=== PATIENT | male | born 1960 | race Caucasian/White ===

== ENCOUNTER → 2020-03-26 | Outpatient (CLI) | payer MEDICARE ==
[2020-03-26 14:46] LABS: Basophils # (A) 0.1 k/uL (0-0.2); Basophils % (A) 1 %; Eosinophils # (A) 0.3 k/uL (0-0.7); Eosinophils % (A) 4 %; HCT 43.7 % (39.0-53.0); HGB 13.3 gm/dL (13.0-17.5); Lymphocytes % (A) 16 %; MCH 28.1 pg (25.0-35.0); MCHC 30.5 g/dL (31.0-37.0); MCV 92.2 fL (80.0-100.0); Mean Platelet Volume 7.2; Monocytes # (A) 0.6 k/uL (0-1.0); Monocytes % (A) 9 %; Neutrophils # (A) 4.4 k/uL (1.3-7.7); Neutrophils % (A) 68 %; Platelet Count 230 k/uL (150-450); RBC 4.74 m/uL (4.30-5.90); WBC 6.6 k/uL (3.8-10.6)
[2020-03-26 19:30] LABS: ALT 36 U/L (10-49); AST 33 U/L (14-35); African American GFR (CKD) 111.7 (60.0-200.0); Alkaline Phosphatase 77 U/L (41-126); Calcium 9.4 mg/dL (8.7-10.3); Carbon Dioxide 28.4 mmol/L (21.6-31.8); Chloride 104 mmol/L (96-109); Chol/HDL Ratio 3.34; Cholesterol 197 mg/dL (0-200); Globulin 2.5 g/dL (1.6-3.3); Glucose 88 mg/dL (70-110); Non-African American GFR(CKD) 96.4 (60.0-200.0); Potassium 4.6 mmol/L (3.5-5.5); Prostate Specific Antigen 0.7 ng/mL (0.0-4.5); Rheumatoid Factor, Qnt <4 IU/mL (0-15); Sodium 141 mmol/L (135-145); Total Bilirubin 0.4 mg/dL (0.3-1.2)
[2020-03-26 20:07] LABS: Erythrocyte Sedimentation Rate 14 mm/Hr (0-20)
[2020-03-26 20:20] LABS: Hemoglobin A1C 5.6 % (4.0-6.0)
[2020-03-26 20:42] LABS: C-Peptide 1.19 ng/mL (0.81-3.85)
[2020-03-27 11:05] LABS: Serum Amphetamine Negative; Serum Barbiturates Negative; Serum Benzodiazepine Negative; Serum Cocaine Negative; Serum Methadone Negative; Serum Opiates Positive; Serum Phencyclidine Negative; Serum Propoxyphene Negative; Serum THC (Cannabis) Negative
== END | disposition home or self-care (01) ==
LOC: LABWHC1 12:55
PROVIDERS: ATTEND Family Medicine
DX: I10 Essential (primary) hypertension (principal); Z79.899 Other long term (current) drug therapy; R97.20 Elevated prostate specific antigen [PSA]
CPT/HCPCS: 36415; 80053; 80061; 80307; 83036; 84153; 84681; 85025; 85652; 86431

== ENCOUNTER 2020-07-17 21:33 | Inpatient (IN) | payer MEDICARE ==
[2020-07-17] MEDS ORDERED: SODIUM CHLORIDE 0.9% 500 ML 500 ML IV ONE (22:19)
[2020-07-17] MEDS ORDERED: HYDROmorphone 1 MG/ML 1 ML SYRINGE IVP STA (22:21)
[2020-07-17] MEDS ORDERED: ONDANSETRON 4 MG/2 ML VIAL IVP STA (22:21)
[2020-07-17] MEDS ORDERED: LORazepam 2 MG/ML INJ IV STA (22:21)
--- NOTE | 2020-07-17 22:54 | ED ---
Altered Mental Status HPI - General Chief Complaint: Altered Mental Status Stated Complaint: Altered Mental Status Time Seen by Provider: 07/17/20 21:49 Source: patient, EMS Mode of arrival: EMS Limitations: altered mental status - History of Present Illness Initial Comments: 59 year-old presents to the emergency department for evaluation. It is unclear why patient is coming into the emergency department. His thoughts are scattered and he seems overwhelmed with pain and positioning though he states this is chronic for him and not new. He is also reporting abdominal pain and distention which he states has been going on for a long time. He denies any fever or chills. States that today he noticed his apartment was very hot and that he had turned the heat up way too high. He states that he almost fell down, but was able to catch himself on the wall. Denies any head injury. States that he realized he needed to come to the hospital so he called a friend to call and ambulance. When EMS crew arrived the house was very messy and filthy. They state that patient seemed very altered and stated that the friend seemed to think so as well. He denies any vomiting. Denies headache, blurred or double vision. Again he is reporting back pain and leg pain, takes "100mg Morphine every day but it isn't working". - Related Data Home Medications Medication Instructions Recorded Confirmed Escitalopram [Lexapro] 10 mg PO DAILY 07/17/20 07/17/20 Fluticasone Nasal [place] [Flonase 2 spr EA NOSTRIL DAILY 07/17/20 07/17/20 Nasal [place]] Gabapentin 600 mg PO TID 07/17/20 07/17/20 Morphine Sulfate ER [Ms Contin] 60 mg PO BID 07/17/20 07/17/20 Pantoprazole Sodium [Protonix] 40 mg PO BID 07/17/20 07/17/20 Sulfamethox-Tmp 800-160Mg [Bactrim 1 tab PO BID 07/17/20 07/17/20 DS 800-160 mg] clonazePAM [KlonoPIN] 0.5 mg PO QID 07/17/20 07/17/20 lisinopriL 20 mg PO DAILY 07/17/20 07/17/20 Allergies Allergy/AdvReac Type Severity Reaction Status Date / Time No Known Allergies Allergy Verified 07/17/20 22:47 Review of Systems ROS Statement: Those systems with pertinent positive or pertinent negative responses have been documented in the HPI. ROS Other: All systems not noted in ROS Statement are negative. Past Medical History Past Medical History: Unable to Obtain, Hypertension History of Any Multi-Drug Resistant Organisms: None Reported Past Surgical History: Back Surgery, Orthopedic Surgery Additional Past Surgical History / Comment(s): neck surgery Past Psychological History: Anxiety Smoking Status: Former smoker Past Alcohol Use History: Abuse Past Drug Use History: None Reported General Exam Limitations: altered mental status General appearance: alert, anxious, in distress, other (Social well-developed, well-nourished, obese male patient in mild distress related to pain and discomfort. Vital signs upon presentation are temperature 98.3F, pulse 88, respirations 22, blood pressure 175/89, pulse ox 96% on room air.) Eye exam: Present: normal appearance, PERRL, EOMI. Absent: scleral icterus, conjunctival injection, periorbital swelling ENT exam: Present: normal exam, normal oropharynx, mucous membranes moist Respiratory exam: Present: normal lung sounds bilaterally. Absent: respiratory distress, wheezes, rales, rhonchi, stridor Cardiovascular Exam: Present: regular rate, normal rhythm, normal heart sounds. Absent: systolic murmur, diastolic murmur, rubs, gallop, clicks GI/Abdominal exam: Present: soft, distended, tenderness (Generalized abdominal tenderness), normal bowel sounds. Absent: guarding, rebound, rigid Neurological exam: Present: alert, oriented X3, CN II-XII intact Psychiatric exam: Present: normal affect, normal mood Skin exam: Present: warm, dry, intact, normal color. Absent: rash Course Vital Signs 07/17/20 07/17/20 21:57 23:00 Temperature 98.3 F Pulse Rate 88 76 Respiratory 22 18 Rate Blood Pressure 175/89 145/68 O2 Sat by Pulse 96 99 Oximetry Medical Decision Making - Medical Decision Making 59-year-old male patient presents to the emergency department today for altered mental status and abdominal pain. Physical examination did reveal distended tender abdomen. Lower legs were red flaky with no swelling. He is afebrile normal vital signs. Labs reviewed and did reveal decreased sodium at 133, potassium 6.1, BUN 28. Blood sugar was normal at 96. Urine showed no evidence for infection. He was positive for opiates and benzos. CT brain was negative. CT abdomen and pelvis did reveal a ventral hernia with no other abnormalities. Patient was treated for hyperkalemia with IV medication. He was given IV fluids. He'll be admitted to the hospital for further evaluation of altered mental status and hyperkalemia. He is agreeable with this plan. - Lab Data Result diagrams: 07/17/20 22:40 07/18/20 00:18 Lab Results 07/17/20 07/17/20 07/17/20 Range/Units 22:40 22:40 22:40 WBC 5.7 (3.8-10.6) k/uL RBC 5.02 (4.30-5.90) m/uL Hgb 15.0 (13.0-17.5) gm/dL Hct 44.0 (39.0-53.0) % MCV 87.7 (80.0-100.0) fL MCH 29.9 (25.0-35.0) pg MCHC 34.1 (31.0-37.0) g/dL RDW 12.5 (11.5-15.5) % Plt Count 259 (150-450) k/uL MPV 7.0 Neutrophils % 72 % Lymphocytes % 15 % Monocytes % 7 % Eosinophils % 2 % Basophils % 1 % Neutrophils # 4.1 (1.3-7.7) k/uL Lymphocytes # 0.9 L (1.0-4.8) k/uL Monocytes # 0.4 (0-1.0) k/uL Eosinophils # 0.1 (0-0.7) k/uL Basophils # 0.1 (0-0.2) k/uL PT 10.5 (9.0-12.0) sec INR 1.0 (<1.2) APTT 18.8 L (22.0-30.0) sec Sodium (137-145) mmol/L Potassium (3.5-5.1) mmol/L Chloride (98-107) mmol/L Carbon Dioxide (22-30) mmol/L Anion Gap mmol/L BUN (9-20) mg/dL Creatinine (0.66-1.25) mg/dL Est GFR (CKD-EPI)AfAm (>60 ml/min/1.73 sqM) Est GFR (CKD-EPI)NonAf (>60 ml/min/1.73 sqM) Glucose (74-99) mg/dL POC Glucose (mg/dL) (75-99) mg/dL POC Glu Soda Drier Feeder ID Calcium (8.4-10.2) mg/dL Magnesium (1.6-2.3) mg/dL Total Bilirubin (0.2-1.3) mg/dL AST (17-59) U/L ALT (4-49) U/L Alkaline Phosphatase (38-126) U/L Ammonia (<30) umol/L Troponin I (0.000-0.034) ng/mL Total Protein (6.3-8.2) g/dL Albumin (3.5-5.0) g/dL Lipase (23-300) U/L Urine Color Yellow Urine Appearance Clear (Clear) Urine pH 6.0 (5.0-8.0) Ur Specific [place] 1.021 (1.001-1.035) Urine Protein 1+ H (Negative) Urine Glucose (UA) Negative (Negative) Urine Ketones 2+ H (Negative) Urine Blood Small H (Negative) Urine Nitrite Negative (Negative) Urine Bilirubin Negative (Negative) Urine Urobilinogen <2.0 (<2.0) mg/dL Ur Leukocyte Esterase Negative (Negative) Urine RBC 1 (0-5) /hpf Urine WBC 2 (0-5) /hpf Ur Squamous Epith Cells <1 (0-4) /hpf Urine Mucus Rare H (None) /hpf Salicylates mg/dL Urine Opiates Screen Detected H (NotDetected) Ur Oxycodone Screen Not Detected (NotDetected) Urine Methadone Screen Not Detected (NotDetected) Ur Propoxyphene Screen Not Detected (NotDetected) Acetaminophen ug/mL Ur Barbiturates Screen Not Detected (NotDetected) U Tricyclic Antidepress Not Detected (NotDetected) Ur Phencyclidine Scrn Not Detected (NotDetected) Ur Amphetamines Screen Not Detected (NotDetected) U Methamphetamines Scrn Not Detected (NotDetected) U Benzodiazepines Scrn Detected H (NotDetected) Urine Cocaine Screen Not Detected (NotDetected) U Marijuana (THC) Screen Not Detected (NotDetected) Serum Alcohol mg/dL 07/17/20 07/17/20 07/17/20 Range/Units 22:40 22:40 22:40 WBC (3.8-10.6) k/uL RBC (4.30-5.90) m/uL Hgb (13.0-17.5) gm/dL Hct (39.0-53.0) % MCV (80.0-100.0) fL MCH (25.0-35.0) pg MCHC (31.0-37.0) g/dL RDW (11.5-15.5) % Plt Count (150-450) k/uL MPV Neutrophils % % Lymphocytes % % Monocytes % % Eosinophils % % Basophils % % Neutrophils # (1.3-7.7) k/uL Lymphocytes # (1.0-4.8) k/uL Monocytes # (0-1.0) k/uL Eosinophils # (0-0.7) k/uL Basophils # (0-0.2) k/uL PT (9.0-12.0) sec INR (<1.2) APTT (22.0-30.0) sec Sodium 133 L (137-145) mmol/L Potassium 6.1 H* (3.5-5.1) mmol/L Chloride 98 (98-107) mmol/L Carbon Dioxide 27 (22-30) mmol/L Anion Gap 8 mmol/L BUN 28 H (9-20) mg/dL Creatinine 1.23 (0.66-1.25) mg/dL Est GFR (CKD-EPI)AfAm 73 (>60 ml/min/1.73 sqM) Est GFR (CKD-EPI)NonAf 63 (>60 ml/min/1.73 sqM) Glucose 96 (74-99) mg/dL POC Glucose (mg/dL) (75-99) mg/dL POC Glu Soda Drier Feeder ID Calcium 10.1 (8.4-10.2) mg/dL Magnesium (1.6-2.3) mg/dL Total Bilirubin 0.8 (0.2-1.3) mg/dL AST 114 H (17-59) U/L ALT 75 H (4-49) U/L Alkaline Phosphatase 85 (38-126) U/L Ammonia <9 (<30) umol/L Troponin I 0.012 (0.000-0.034) ng/mL Total Protein 8.0 (6.3-8.2) g/dL Albumin 4.6 (3.5-5.0) g/dL Lipase (23-300) U/L Urine Color Urine Appearance (Clear) Urine pH (5.0-8.0) Ur Specific [place] (1.001-1.035) Urine Protein (Negative) Urine Glucose (UA) (Negative) Urine Ketones (Negative) Urine Blood (Negative) Urine Nitrite (Negative) Urine Bilirubin (Negative) Urine Urobilinogen (<2.0) mg/dL Ur Leukocyte Esterase (Negative) Urine RBC (0-5) /hpf Urine WBC (0-5) /hpf Ur Squamous Epith Cells (0-4) /hpf Urine Mucus (None) /hpf Salicylates mg/dL Urine Opiates Screen (NotDetected) Ur Oxycodone Screen (NotDetected) Urine Methadone Screen (NotDetected) Ur Propoxyphene Screen (NotDetected) Acetaminophen ug/mL Ur Barbiturates Screen (NotDetected) U Tricyclic Antidepress (NotDetected) Ur Phencyclidine Scrn (NotDetected) Ur Amphetamines Screen (NotDetected) U Methamphetamines Scrn (NotDetected) U Benzodiazepines Scrn (NotDetected) Urine Cocaine Screen (NotDetected) U Marijuana (THC) Screen (NotDetected) Serum Alcohol mg/dL 07/17/20 07/17/20 07/18/20 Range/Units 22:40 23:10 00:18 WBC (3.8-10.6) k/uL RBC (4.30-5.90) m/uL Hgb (13.0-17.5) gm/dL Hct (39.0-53.0) % MCV (80.0-100.0) fL MCH (25.0-35.0) pg MCHC (31.0-37.0) g/dL RDW (11.5-15.5) % Plt Count (150-450) k/uL MPV Neutrophils % % Lymphocytes % % Monocytes % % Eosinophils % % Basophils % % Neutrophils # (1.3-7.7) k/uL Lymphocytes # (1.0-4.8) k/uL Monocytes # (0-1.0) k/uL Eosinophils # (0-0.7) k/uL Basophils # (0-0.2) k/uL PT (9.0-12.0) sec INR (<1.2) APTT (22.0-30.0) sec Sodium (137-145) mmol/L Potassium 6.6 H* (3.5-5.1) mmol/L Chloride (98-107) mmol/L Carbon Dioxide (22-30) mmol/L Anion Gap mmol/L BUN (9-20) mg/dL Creatinine (0.66-1.25) mg/dL Est GFR (CKD-EPI)AfAm (>60 ml/min/1.73 sqM) Est GFR (CKD-EPI)NonAf (>60 ml/min/1.73 sqM) Glucose (74-99) mg/dL POC Glucose (mg/dL) 77 (75-99) mg/dL POC Glu Soda Drier Feeder ID [place] Calcium (8.4-10.2) mg/dL Magnesium 2.0 (1.6-2.3) mg/dL Total Bilirubin (0.2-1.3) mg/dL AST (17-59) U/L ALT (4-49) U/L Alkaline Phosphatase (38-126) U/L Ammonia (<30) umol/L Troponin I (0.000-0.034) ng/mL Total Protein (6.3-8.2) g/dL Albumin (3.5-5.0) g/dL Lipase 91 (23-300) U/L Urine Color Urine Appearance (Clear) Urine pH (5.0-8.0) Ur Specific [place] (1.001-1.035) Urine Protein (Negative) Urine Glucose (UA) (Negative) Urine Ketones (Negative) Urine Blood (Negative) Urine Nitrite (Negative) Urine Bilirubin (Negative) Urine Urobilinogen (<2.0) mg/dL Ur Leukocyte Esterase (Negative) Urine RBC (0-5) /hpf Urine WBC (0-5) /hpf Ur Squamous Epith Cells (0-4) /hpf Urine Mucus (None) /hpf Salicylates <1.0 mg/dL Urine Opiates Screen (NotDetected) Ur Oxycodone Screen (NotDetected) Urine Methadone Screen (NotDetected) Ur Propoxyphene Screen (NotDetected) Acetaminophen <10.0 ug/mL Ur Barbiturates Screen (NotDetected) U Tricyclic Antidepress (NotDetected) Ur Phencyclidine Scrn (NotDetected) Ur Amphetamines Screen (NotDetected) U Methamphetamines Scrn (NotDetected) U Benzodiazepines Scrn (NotDetected) Urine Cocaine Screen (NotDetected) U Marijuana (THC) Screen (NotDetected) Serum Alcohol <10 mg/dL - EKG Data -: EKG Interpreted by Me EKG Comments: EKG obtained at 2245 shows normal sinus rhythm with a ventricular rate of 64, ID interval 144, QRS duration 86, QT 408, QTC 420. No evidence of ST elevation or depression. - Radiology Data Radiology results: report reviewed, image reviewed CT brain without contrast was obtained. Report reviewed in its entirety. Impression by Dr. Valdovinos shows no acute hemorrhage, hydrocephalus, or mass effect. CT abdomen and pelvis is obtained. Report reviewed in its entirety. Impression by Dr. Valdovinos shows no acute findings. Hepatic steatosis. Colonic dive rticulosis. Large right neck ventral hernia with stretching of the anterior abdominal muscles. Disposition Clinical Impression: Altered mental status, Hyperkalemia Disposition: ADMITTED IP TO THIS [facility] Condition: Serious Decision to Admit Reason: Admit from EC Decision Date: 07/18/20 Decision Time: 01:47
[2020-07-17 23:04] LABS: Basophils # (A) 0.1 k/uL (0-0.2); Basophils % (A) 1 %; Eosinophils # (A) 0.1 k/uL (0-0.7); Eosinophils % (A) 2 %; Lymphocytes # (A) 0.9 k/uL (1.0-4.8); Lymphocytes % (A) 15 %; MCH 29.9 pg (25.0-35.0); MCHC 34.1 g/dL (31.0-37.0); MCV 87.7 fL (80.0-100.0); Monocytes # (A) 0.4 k/uL (0-1.0); Monocytes % (A) 7 %; Neutrophils # (A) 4.1 k/uL (1.3-7.7); Neutrophils % (A) 72 %; Platelet Count 259 k/uL (150-450); RBC 5.02 m/uL (4.30-5.90); RDW 12.5 % (11.5-15.5); WBC 5.7 k/uL (3.8-10.6)
[2020-07-17 23:11] LABS: Glucose,Whole Blood 77 mg/dL (75-99)
[2020-07-17 23:12] LABS: Albumin 4.6 g/dL (3.5-5.0); Appearance,Urine Clear (Clear); Bilirubin,Urine Negative (Negative); Blood,Urine Small (Negative); Calcium 10.1 mg/dL (8.4-10.2); Color,Urine Yellow; Glucose,Urine (UA) Negative (Negative); Ketones,Urine 2+ (Negative); Leukocyte Esterase,Urine Negative (Negative); Mucus,Urine Rare /hpf; Nitrite,Urine Negative (Negative); Protein,Urine 1+ (Negative); RBC,Urine 1 /hpf (0-5); Specific Gravity,Urine 1.021 (1.001-1.035); Squamous Epithelial Cell,Urine <1 /hpf (0-4); Total Bilirubin 0.8 mg/dL (0.2-1.3); Urobilinogen,Urine <2.0 mg/dL (<2.0); WBC,Urine 2 /hpf (0-5)
[2020-07-17 23:15] LABS: Potassium 6.1 mmol/L (3.5-5.1)
[2020-07-17 23:26] LABS: Prothrombin Time 10.5 sec (9.0-12.0)
[2020-07-17 23:28] LABS: Amphetamine Screen,Urine Not Detected (NotDetected); Barbiturate Screen,Urine Not Detected (NotDetected); Benzodiazepines Screen,Urine Detected (NotDetected); Cocaine Screen,Urine Not Detected (NotDetected); Methadone Screen, Urine Not Detected (NotDetected); Opiate Screen,Urine Detected (NotDetected); Oxycodone Screen, Urine Not Detected (NotDetected); Phencyclidine Screen,Urine Not Detected (NotDetected); Tricyclic Antidepressant,Urine Not Detected (NotDetected); Urn Cannabinoid Scrn Not Detected (NotDetected)
[2020-07-17 23:30] LABS: Partial Thromboplastin Time 18.8 sec (22.0-30.0)
[2020-07-18] MEDS ORDERED: HYDROmorphone 1 MG/ML 1 ML SYRINGE IVP STA (00:07)
--- NOTE | 2020-07-18 01:18 | CT ---
EXAM: CT Abdomen and Pelvis With Intravenous Contrast CLINICAL HISTORY: ITS.REASON CT Reason: Abd pain; distention TECHNIQUE: Axial computed tomography images of the abdomen and pelvis with intravenous contrast. CTDI is 40.47 mGy and DLP is 1859.7 mGy-cm. This CT exam was performed using one or more of the following dose reduction techniques: automated exposure control, adjustment of the mA and/or kV according to patient size, and/or use of iterative reconstruction technique. COMPARISON: No relevant prior studies available. FINDINGS: Lung bases: Bibasilar atelectasis. ABDOMEN: Liver: Mild steatosis.. Gallbladder and bile ducts: Unremarkable. Pancreas: Unremarkable. Spleen: Unremarkable. Adrenals: Unremarkable. Kidneys and ureters: No hydronephrosis. Stomach and bowel: No bowel obstruction. No bowel wall thickening. Mild colonic diverticulosis. PELVIS: Appendix: No evidence of appendicitis. Bladder: Unremarkable. Reproductive: Unremarkable. ABDOMEN and PELVIS: Intraperitoneal space: Unremarkable. Bones/joints: No acute fractures. Partially fused thoracolumbar spine and sacroiliac joints. Left femoral ORIF. Soft tissues: Large wide neck ventral hernia with stretching of the anterior abdominal muscles. No abdominal aortic aneurysm. Lymph nodes: No enlarged lymph nodes. IMPRESSION: 1. No acute findings. 2. Hepatic steatosis. 3. Colonic diverticulosis. 4. Large wide neck ventral hernia with stretching of the anterior abdominal muscles.
--- NOTE | 2020-07-18 01:18 | CT ---
EXAM: CT Head Without Intravenous Contrast CLINICAL HISTORY: ITS.REASON CT Reason: Altered mental status TECHNIQUE: Axial computed tomography images of the head/brain without intravenous contrast. CTDI is 49.27 mGy and DLP is 1070.4 mGy-cm. This CT exam was performed using one or more of the following dose reduction techniques: automated exposure control, adjustment of the mA and/or kV according to patient size, and/or use of iterative reconstruction technique. COMPARISON: No relevant prior studies available. FINDINGS: Brain: No hemorrhage or mass effect. Ventricles: No hydrocephalus. Bones/joints: Postsurgical changes at the occiput and upper cervical spine. Soft tissues: Unremarkable. Sinuses: Unremarkable. Mastoid air cells: Clear. IMPRESSION: No acute hemorrhage, hydrocephalus, or mass effect.
[2020-07-18] MEDS ORDERED: SODIUM CHLORIDE 0.9% 500 ML 500 ML IV ONE (01:22)
[2020-07-18] MEDS ORDERED: DEXTROSE 50% SYRINGE 50 ML IVP STA (01:22)
[2020-07-18] MEDS ORDERED: INSULIN REGULAR 100 UNIT/ML VIAL IV ONE (01:22)
[2020-07-18] MEDS ORDERED: CALCIUM GLUCONATE 1 GM in SODIUM CHLORIDE 0.9% 100 ML IVPB ONE (01:22)
[2020-07-18] MEDS ORDERED: FUROSEMIDE 10 MG/ML 4 ML VIAL IV STA (01:25)
[2020-07-18] MEDS ORDERED: NALOXONE 0.4 MG/ML 1 ML VIAL IV PRN (01:28)
[2020-07-18 01:40] LABS: Acetaminophen <10.0 ug/mL; Alcohol <10 mg/dL; Lipase 91 U/L (23-300); Salicylate <1.0 mg/dL
[2020-07-18] MEDS: HYDROmorphone 1 MG/ML 1 ML SYRINGE IVP PRN ×3 (03:32→15:07)
[2020-07-18] MEDS: LORazepam 2 MG/ML INJ IV PRN ×2 (03:34→09:53)
[2020-07-18] MEDS ORDERED: MORPHINE SULFATE ER 60 MG TABLET PO SCH (10:45)
[2020-07-18] MEDS ORDERED: lisinopriL 20 MG TAB PO SCH (10:45)
[2020-07-18 11:23] LABS: Calcium 9.8 mg/dL (8.4-10.2); Potassium 5.1 mmol/L (3.5-5.1)
[2020-07-18] MEDS: ESCITALOPRAM 10 MG TAB PO SCH (12:00)
[2020-07-18] MEDS: clonazePAM 0.5 MG TAB PO SCH ×3 (12:04→20:40)
[2020-07-18] MEDS: GABAPENTIN 300 MG CAP PO SCH ×2 (12:04→20:38)
[2020-07-18] MEDS: FLUTICASONE 50MCG/SPRAY NASAL 16GM EA NOSTRIL SCH (12:11)
[2020-07-18] MEDS: SODIUM CHLORIDE 0.9% 1,000 ML IV SCH (12:42)
[2020-07-18] MEDS: MORPHINE SULFATE ER 30 MG TABLET PO SCH ×2 (12:42→20:38)
--- NOTE | 2020-07-18 14:45 | P.CNNES ---
History of Present Illness Consult date: 07/18/20 Reason for Consult: altered mental status History of Present Illness: The patient is a 59-year-old male who [facility] on July 18, 2020 via teleneurology. The patient reportedly was brought into the emergency department via EMS. Patient states that he called a friend because he was not feeling well. The p grzegorz is a poor historian. He states that he is feeling "terrible". He also states "I'm a sick puppy". He reports having difficulty concentrating because of pain. He states that he was in his apartment and found that he had turned his thermostat up "way too high". He says that he was very hot and because of the extreme heat was feeling very poorly. He reports setting the temperature at "32C". He then argues with the nurse regarding the temperature conversion to Fahrenheit. The patient complains of severe pain. He says. He has had chronic pain for many years. He also notes that over the past several months, he has noticed severe abdominal pain. He repeatedly states that he feels as if someone puts something inside of his abdomen such as a "basketball" and they have blown it up, causing his abdomen to be very painful and to be distended. The patient reports having "thoracic, lumbar, neck and foot" pain. He says simply touching his feet causes severe pain. In reviewing the emergency department note, when EMS arrived at the patient's home they found it to be in marked disarray. EMS felt the patient was confused. The patient's friend also reportedly felt that the patient was not acting as his usual self. Past Medical History Past Medical History: Unable to Obtain, Hypertension Additional Past Medical History / Comment(s): chronic pain History of Any Multi-Drug Resistant Organisms: None Reported Past Surgical History: Back Surgery, Orthopedic Surgery Additional Past Surgical History / Comment(s): neck surgery Past Psychological History: Anxiety Smoking Status: Former smoker Past Alcohol Use History: Abuse Past Drug Use History: None Reported Medications and Allergies Home Medications Medication Instructions Recorded Confirmed Type Escitalopram [Lexapro] 10 mg PO DAILY 07/17/20 07/17/20 History Fluticasone Nasal [place] [Flonase 2 spr EA NOSTRIL DAILY 07/17/20 07/17/20 History Nasal [place]] Gabapentin 600 mg PO TID 07/17/20 07/17/20 History Morphine Sulfate ER [Ms Contin] 60 mg PO BID 07/17/20 07/17/20 History Pantoprazole Sodium [Protonix] 40 mg PO BID 07/17/20 07/17/20 History Sulfamethox-Tmp 800-160Mg [Bactrim 1 tab PO BID 07/17/20 07/17/20 History DS 800-160 mg] clonazePAM [KlonoPIN] 0.5 mg PO QID 07/17/20 07/17/20 History lisinopriL 20 mg PO DAILY 07/17/20 07/17/20 History Allergies Allergy/AdvReac Type Severity Reaction Status Date / Time No Known Allergies Allergy Verified 07/17/20 22:47 Physical Examination - Vital Signs Vital Signs: Vital Signs Temp Pulse Pulse Resp BP BP Pulse Ox 07/18/20 04:00 90 157/92 07/18/20 02:09 98.7 F 95 20 170/100 93 L 07/17/20 23:00 76 18 145/68 99 07/17/20 21:57 98.3 F 88 22 175/89 96 Intake and Output 07/17/20 07/18/20 07/18/20 22:59 06:59 14:59 Intake Total 340 0 Output Total 550 Balance -210 0 Intake: Intake, IV Titration 100 Amount Calcium Gluconate 1 gm In 100 Sodium Chloride 0.9% 100 ml @ 100 mls/hr IVPB ONCE ONE Rx#:[id number] Oral 240 0 Output: Urine 550 Other: Weight 102.058 kg 91 kg Gen.: The patient is reclining in the bed. He is in moderate distress, secondary to pain. HEENT: Head is atraumatic, normocephalic. Fundus not visualized. There is no scleral icterus. Mucous members are moist. Neck: Without bruits Heart: Regular rate and rhythm Lungs: Clear to auscultation Extremities: Without edema Neurological examination Mental status: The patient is awake, alert and oriented 3. His speech is clear. There is no dysarthria or dysphasia. The patient repeatedly states that he is in severe pain. He perseverates on pain. He repeatedly asks the nurse for pain medications. There is near constant talking about his pain. Cranial nerves: Pupils are equal at 3 mm and reactive. Visual ruano are full to confrontation. Extraocular movements are intact. There is no nystagmus. Facial sensation is intact. There is no facial asymmetry. Hearing is grossly intact. Uvula and palate are midline. Shoulder shrug is symmetric. Tongue protrudes midline. Motor: Strength is not formally assessed. The patient is observed moving his arms and legs around when repositioning in the bed. He is able to lift his legs to reposition himself. He is able to raise his arms over his head when trying to place a pillow behind his head. Coordination: [id number] and [id number] testing are intact Sensation: Grossly intact to light touch throughout. Deep tendon reflexes: 1+/4+ in the upper extremities. 1-2+4+ at the knees. Gait: Not assessed Results - Laboratory Findings CBC and BMP: 07/17/20 22:40 07/18/20 10:44 Abnormal Lab Findings: Abnormal Labs 07/17/20 07/17/20 07/17/20 22:40 22:40 22:40 Lymphocytes # 0.9 L APTT 18.8 L Sodium Potassium BUN AST ALT Urine Protein 1+ H Urine Ketones 2+ H Urine Blood Small H Urine Mucus Rare H Urine Opiates Screen Detected H U Benzodiazepines Scrn Detected H 07/17/20 07/18/20 22:40 00:18 Lymphocytes # APTT Sodium 133 L Potassium 6.1 H* 6.6 H* BUN 28 H AST 114 H ALT 75 H Urine Protein Urine Ketones Urine Blood Urine Mucus Urine Opiates Screen U Benzodiazepines Scrn Assessment and Plan Assessment: 1. The patient is cognitively intact. There is marked perseveration and near continuous speech regarding pain. The patient reports having difficulty answering questions because of his severe pain. Consider jeff versus secondary to morphine dependence/addiction 2. Hyperkalemia 3. Elevated liver enzymes Plan: 1. Consider evaluation by pain specialist 2. Consider psych evaluation 3. Your treatment of hyperkalemia and elevated liver enzymes Thank you for allowing me to participate in the care of this patient Time with Patient: Greater than 30 (spent 40 minutes via teleneurology)
--- NOTE | 2020-07-18 15:48 | HP ---
HISTORY AND PHYSICAL HISTORY OF PRESENT ILLNESS: The patient is complaining of abdominal pain and bloating, altered mental status. He says his thoughts are scattered. Feels overwhelmed with pain and positioning which are chronic for him. He has abdominal wall pain and distention that has been getting worse. No fever or chills. He had turned up the heat way too high at his home into 100. He could not breath, he could not catch himself. Nearly fell, passed out, came to the emergency room. EMS came. His place was messy and filthy. The patient felt very altered and stated that the friend seemed to think so as well. Denied any vomiting. Denies headache, blurred vision or double vision. He had negative CT scan of the brain. He is a chronic pain patient and has had multiple surgeries in the past. He wears a cervical collar all the time. MEDICATIONS: Home medicines: Lexapro 10 mg daily, fluticasone daily, gabapentin 600 t.i.d., MS Contin 60 b.i.d., Protonix 40 b.i.d., Bactrim Double Strength b.i.d., Klonopin 0.5 q.i.d., lisinopril 20 mg daily. ALLERGIES: Negative. REVIEW OF SYSTEMS: Fourteen-point review of systems as mentioned above. PAST MEDICAL HISTORY: Hypertension, some kind of lymphatic obstruction, multiple surgeries on his cervical and lumbar spine with multiple braces on his legs. He has severe skin infection in the lower legs and large scaling for which he is untreated. He changes socks once a month when he comes to my office. Psych history is some anxiety. SOCIAL HISTORY: Former smoker. History of alcohol abuse. PHYSICAL EXAMINATION: Vital signs are reviewed. He is alert. He appears anxious, giving appropriate answers. He is in mild distress. He wants his pillow set a certain way and pillow under his legs. His temperature is 98.3, pulse 88, respiratory 18-20, blood pressure was 170s over 80s. O2 is 96 on room air. Pupils equal, round, reactive to light and accommodation. ENT no mass. RESPIRATORY: Mild wheezes x4, otherwise clear. CARDIAC S1, S2. GI soft, normal bowel sounds. No guarding. No rebound. No rigidity. NEUROLOGIC: Alert and orient x3. PSYCH: Fair mood and affect. SKIN: Severe skin excoriation in the lower legs and severe thickening and deformed nails of the feet, severe redness from the knees down with super amounts of scaly skin and all over the place in his lower legs and severe thickened areas. CT abdomen and pelvis showed a ventral hernia. He had hyperkalemia treated with IV medicine, IV fluid which is new for him. We will get neurology consult. Renal consult for hyperkalemia, unclear etiology as a normal white count. UA shows 2+ ketones, suspect a severely dehydrated. LABORATORY DATA: Sodium on admission was 133, potassium 6.1, BUN 28, creatinine 1.23, calcium 10.1, AST is 114, ALT 75, albumin 4.6, magnesium 2.0. EKG sinus rhythm, no ischemia. CT of the brain is negative. CT abdomen pelvis, no acute findings. Fatty liver, large right ventral hernia. ASSESSMENT: 1. Altered mental status. 2. Hyperkalemia. 3. Dehydration. 4. Prerenal renal azotemia. 5. History of lumbar fusions and chronic pain syndrome. 6. Cellulitis. 7. of the legs. Wait for Infectious Disease, to take a look at his legs. Rehydrate him. Get Neurology to see him and renal for hyperkalemia. Please see further orders. GI will see him for possible irritable bowel syndrome of some kind. MMODL / IJN: [id number] /
[2020-07-18] MEDS: PANTOPRAZOLE 40 MG TABLET PO SCH (20:39)
--- NOTE | 2020-07-18 23:03 | CONS ---
CONSULTATION DATE OF SERVICE: 07/18/2020 REASON FOR CONSULTATION: Bilateral lower extremity cellulitis. HISTORY OF PRESENT ILLNESS: The patient is a 59-year-old male brought into the ER after a friend of his called EMS with the patient concerning for not feeling well. The patient has been complaining of a chronic pain syndrome and unable to take care of his legs in this patient who has significant crusting on the lower extremity. He mentioned he has not been able to wash them. The patient also complaining of abdominal distention. Denies having any nausea. No vomiting. No diarrhea or constipation. Denies having any chest pain. No shortness of breath or cough. On arrival of the EMS, the patient was noticed to have his ostomy messy, filthy and the patient was noticed to be slightly altered mental status. Though the patient denies having any headache or any other symptoms. The patient apparently does have chronic back pain and is taking about 100 mg of morphine every day, which apparently is not working for him. The patient on presentation to the hospital was afebrile. No fever has been recorded since then. The patient did have a normal white count. He was noticed to have a potassium of 6.1, creatinine was 1.23. Liver enzymes mildly elevated. Urine was negative. Urine drug screen was positive for benzo and opiates. The patient did have a CT of abdomen and pelvis did show large ventral hernia, but no other abnormality. The patient was noticed to have some erythema of the lower extremity with concern for possible cellulitis. He was started on cefazolin. Infectious Disease was consulted for further management of antibiotic therapy. Patient overall not a very good historian so most of the information has been extracted from the review of the chart. REVIEW OF SYSTEMS: Positive points have been mentioned in HPI. Complete review could not be obtained because of his mental status. PAST MEDICAL HISTORY: Chronic back pain, anxiety, and hypertension. PAST SURGICAL HISTORY: Neck surgery as well as back surgery. SOCIAL HISTORY: Remote history of smoking. Did have history of alcohol abuse. No drug use. FAMILY HISTORY: No pertinent findings noticed. ALLERGIES: No known drug allergies. MEDICATIONS: Include the patient is currently on cefazolin 1 g q.8 hours and Klonopin, Lexapro, Neurontin, Dilaudid, Zestril, Ativan, Ms Contin, Narcan, Protonix, and IV fluid. PHYSICAL EXAMINATION: Blood pressure 122/84 with a pulse of 87, temperature 98.6, he is 94% on room air. General description: The patient is a middle-aged male lying in bed in no distress. HEENT examination: No pallor or scleral icterus. Oral mucous membranes dry. No pharyngeal erythema or thrush. NECK: Trachea central. No thyromegaly. Lungs: Unlabored breathing with decreased breath sounds in the bases. No wheeze or crackles. Heart S1, S2. Regular rate and rhythm. No added sounds. ABDOMEN: Soft, no tenderness. No guarding or rigidity. Extremities with significant crusting, very minimal redness. No open wound or any drainage. Neurological: Patient is awake, alert, oriented times two. Mood and affect normal. LABS: Hemoglobin is 18, white count 5.7. BUN of 24, creatinine 1.16. Potassium 6.1. Liver enzymes mildly elevated. DIAGNOSTIC IMPRESSION AND PLAN: 1. Patient admitted to the hospital with mental status changes, possible metabolic currently being managed by Neurology in this patient who did have minimal erythema to the lower extremity, but no fever or elevated white count and did have significant poor hygiene to the lower extremity more of a factor than cellulitis. 2. Elevated liver enzymes. PLAN: 1. May continue cefazolin 1 g q.8 hours. 2. Check a hepatitis panel. 3. The patient may benefit from warm washcloths to the lower extremity to take all the crusting away followed by some moisturizing cream. 4. We will follow on clinical condition and further adjust medication if needed. Thank you for this consultation. Will follow this patient along with you. MMODL / IJN: [id number] /
[2020-07-19 07:33] LABS: ALT 57 U/L (4-49); AST 66 U/L (17-59); African American GFR (CKD) >90 (>60 ml/min/1.73 sqM); Albumin 4.2 g/dL (3.5-5.0); Alkaline Phosphatase 60 U/L (38-126); Anion Gap 7 mmol/L; Basophils # (A) 0.1 k/uL (0-0.2); Basophils % (A) 1 %; Blood Urea Nitrogen 23 mg/dL (9-20); Calcium 9.3 mg/dL (8.4-10.2); Carbon Dioxide 27 mmol/L (22-30); Chloride 100 mmol/L (98-107); Eosinophils # (A) 0.3 k/uL (0-0.7); Eosinophils % (A) 5 %; Glucose 88 mg/dL (74-99); HCT 46.5 % (39.0-53.0); HGB 15.2 gm/dL (13.0-17.5); Lymphocytes # (A) 1.5 k/uL (1.0-4.8); Lymphocytes % (A) 22 %; MCH 29.5 pg (25.0-35.0); MCHC 32.7 g/dL (31.0-37.0); MCV 90.1 fL (80.0-100.0); Monocytes # (A) 0.6 k/uL (0-1.0); Monocytes % (A) 9 %; Neutrophils # (A) 4.1 k/uL (1.3-7.7); Neutrophils % (A) 59 %; Non-African American GFR(CKD) 84 (>60 ml/min/1.73 sqM); Platelet Count 254 k/uL (150-450); Potassium 5.1 mmol/L (3.5-5.1); RBC 5.16 m/uL (4.30-5.90); RDW 12.6 % (11.5-15.5); Sodium 134 mmol/L (137-145); Total Bilirubin 0.7 mg/dL (0.2-1.3); Total Protein 7.5 g/dL (6.3-8.2); WBC 6.9 k/uL (3.8-10.6)
--- NOTE | 2020-07-19 08:51 | P.NPCON ---
History of Present Illness - Reason for Consult acute renal failure, hyperkalemia - History of Present Illness Reason for consultation: Hyperkalemia History of present illness: Patient is a 59-year-old male seen in renal consultation for hyperkalemia. Patient is not a reliable historian and doesn't answer the question asked. Patient was brought to the hospital by the EMS due to generally not feeling well. He does have chronic pain as well as crusting of his lower external 80s. He's being followed by infectious disease. He did undergo CAT scan of the abdomen and pelvis which revealed a large ventral hernia. No acute findings were noted. Blood pressure is stable. Patient's potassium level was 6.1 on admission and subsequently went up to 6.6. Yesterday and today it's been stable at 5.1. He is maintained on normal saline at 50 mL an hour. No history of diabetes. However he was on lisinopril as well as Bactrim outpatient. Both of those medications are currently held. His oral intake is fair. Blood pressure is stable. Denies chest pain or shortness of breath. I don't see any no nsteroidals and his home medication list. Vital signs are stable. General: The patient appeared well nourished and normally developed. HEENT: Head exam is unremarkable. Neck is without jugular venous distension. LUNGS: Breath sounds decreased. HEART: Rate and Rhythm are regular. ABDOMEN: Soft, nontender. EXTREMITITES: Chronic changes noted. No edema. No drainage. Past Medical History Past Medical History: Unable to Obtain, Hypertension Additional Past Medical History / Comment(s): chronic pain History of Any Multi-Drug Resistant Organisms: None Reported Past Surgical History: Back Surgery, Orthopedic Surgery Additional Past Surgical History / Comment(s): neck surgery Past Psychological History: Anxiety Smoking Status: Former smoker Past Alcohol Use History: Abuse Past Drug Use History: None Reported Medications and Allergies Home Medications Medication Instructions Recorded Confirmed Type Escitalopram [Lexapro] 10 mg PO DAILY 07/17/20 07/17/20 History Fluticasone Nasal [place] [Flonase 2 spr EA NOSTRIL DAILY 07/17/20 07/17/20 History Nasal [place]] Gabapentin 600 mg PO TID 07/17/20 07/17/20 History Morphine Sulfate ER [Ms Contin] 60 mg PO BID 07/17/20 07/17/20 History Pantoprazole Sodium [Protonix] 40 mg PO BID 07/17/20 07/17/20 History Sulfamethox-Tmp 800-160Mg [Bactrim 1 tab PO BID 07/17/20 07/17/20 History DS 800-160 mg] clonazePAM [KlonoPIN] 0.5 mg PO QID 07/17/20 07/17/20 History lisinopriL 20 mg PO DAILY 07/17/20 07/17/20 History Allergies Allergy/AdvReac Type Severity Reaction Status Date / Time No Known Allergies Allergy Verified 07/17/20 22:47 Physical Exam Vitals: Vital Signs Temp Pulse Resp BP Pulse Ox 07/19/20 04:00 98.7 F 85 16 123/83 93 L 07/19/20 01:56 84 16 07/19/20 00:00 98.6 F 84 16 138/82 92 L 07/18/20 20:00 98.4 F 107 H 16 137/83 92 L 07/18/20 16:00 98.6 F 87 17 128/84 94 L 07/18/20 14:00 87 17 07/18/20 12:00 98.6 F 90 17 134/80 96 Intake and Output 07/18/20 07/19/20 07/19/20 22:59 06:59 14:59 Intake Total 240 570 Output Total 550 325 Balance -310 245 Intake: Intake, IV Titration 450 Amount Sodium Chloride 0.9% 1, 450 000 ml @ 50 mls/hr IV . Q20H [facility] Rx#:[id number] Oral 240 120 Output: Urine 550 325 Other: Voiding Method Urinal Urinal # Bowel Movements 2 Weight 81.5 kg Results - Lab Results Most recent lab results Calcium 9.3 mg/dL (8.4-10.2) 07/19/20 06:24 Magnesium 2.0 mg/dL (1.6-2.3) 07/17/20 22:40 07/19/20 06:24 07/19/20 06:24 Assessment and Plan Plan: Assessment: 1. Hyperkalemia secondary to mild acute kidney injury, lisinopril and Bactrim. Resolved. 2. Mild acute kidney injury mostly prerenal improved with IV hydration. B actrim can also raise the creatinine by impairing its secretion. 3. Lower extremity cellulitis maintained on antibiotics. Infectious disease following. 4. Benign hypertension. Controlled. Plan: Maintain normal saline at 50 mL an hour. Continue to hold lisinopril. Avoid nephrotoxins. Thank you for the consultation. I will continue to follow the patient with you during his hospital stay.
[2020-07-19] MEDS ORDERED: FLUTICASONE 50MCG/SPRAY NASAL 16GM EA NOSTRIL SCH (09:00)
[2020-07-19] MEDS: ESCITALOPRAM 10 MG TAB PO SCH (09:42)
[2020-07-19] MEDS: MORPHINE SULFATE ER 30 MG TABLET PO SCH ×2 (09:42→20:28)
[2020-07-19] MEDS: GABAPENTIN 300 MG CAP PO SCH ×3 (09:42→23:22)
[2020-07-19] MEDS: clonazePAM 0.5 MG TAB PO SCH ×4 (09:42→23:21)
[2020-07-19] MEDS: PANTOPRAZOLE 40 MG TABLET PO SCH ×2 (09:44→20:28)
[2020-07-19 11:51] LABS: Hepatitis A Antibody IgM Non-Reactive (Non-Reactive); Hepatitis B Core IgM Non-Reactive (Non-Reactive); Hepatitis B Surface Antigen Non-Reactive (Non-Reactive); Hepatitis C IgG Antibody Non-Reactive (Non-Reactive)
[2020-07-19] MEDS: FLUTICASONE 50MCG/SPRAY NASAL 16GM EA NOSTRIL SCH (12:17)
--- NOTE | 2020-07-19 13:14 | P.PN ---
Subjective Progress Note Date: 07/19/20 Patient was seen at bedside and the he stated that he is doing well. Initially upon seen him he stated that the he can I cannot see him until he sees his primary care physician first. With persuasion was able to see the patient and then examine him. He denies of any focal weakness, numbness or difficulty getting his words out. Patient stated that she had multiple fracture in the past he had the cervical fusion from a fall and he cannot tell me how long ago is intact but he had that fusion of the C1 to C7. He told me that he had other factor in his back but could not tell me exactly where. He had a fracture of the the right forearm. He denies of any dizziness, focal weakness, diplopia, any history of seizure with these falls. He said that he was living with his father about a year ago until he currently he lives by himself for the last 1 year and he uses a walker. He denies off on up with the neurology as an outpatient. For the detail the patient neurological history please refer to Dr. Sanderson's note on 07/18/20. Objective - Vital Signs Vital signs: Vital Signs Temp 98.5 F 07/19/20 12:00 Pulse 66 07/19/20 12:00 Resp 18 07/19/20 12:00 BP 137/88 07/19/20 12:00 Pulse Ox 93 L 07/19/20 12:00 Intake & Output 07/18/20 07/19/20 07/19/20 18:59 06:59 18:59 Intake Total 240 570 540 Output Total 575 625 Balance -335 -55 540 Weight 81.5 kg Intake: Intake, IV Titration 450 300 Amount Sodium Chloride 0.9% 1, 450 250 000 ml @ 50 mls/hr IV . Q20H [facility] Rx#:[id number] ceFAZolin 1,000 mg In 50 Sodium Chloride 0.9% 50 ml @ 100 mls/hr IVPB Q8HR [facility] Rx#:[id number] Oral 240 120 240 Output: Urine 575 625 Other: Voiding Method Urinal Urinal Urinal # Bowel Movements 2 - Exam GENERAL: The patient is lying in bed and is not in acute distress. Patient has flat affect. NEUROLOGICAL: Higher mental function: The patient is awake, alert, oriented to self, place and time. Patient is following commands. No aphasia and no neglect. Cranial nerves: The pupils are round, equal and reactive to light and accommodation. Visual ruano are full to confrontation throughout. Extraocular movement is intact no nystagmus is noted. Facial sensation is normal to touch throughout. The facial strength is normal throughout. Hearing is normal bilaterally to hand rub. Tongue is midline and moved [id number] without any difficulty. No dysarthria is noted. Shoulder shrug is normal bilaterally. Motor: Gait is deferred. The strength is 5 over 5 throughout upper but in lower is able to lift above gravity. No sponatenous movement noted throughout.. Cerebellum: Normal finger to nose heel to chin bilaterally. Sensation: Sensation is normal to touch throughout. Reflexes (right/left): Left brachioradialis; left patellar 3+. Otherwise 2+ throughout. Could not assess ankles because of patient refusal because of pain in lower extremities. Plantars are downgoing bilaterally. - Labs CBC & Chem 7: 07/19/20 06:24 07/19/20 06:24 Labs: Abnormal Lab Results - Last 24 Hours (Table) 07/19/20 Range/Units 06:24 Sodium 134 L (137-145) mmol/L BUN 23 H (9-20) mg/dL AST 66 H (17-59) U/L ALT 57 H (4-49) U/L Microbiology - Last 24 Hours (Table) 07/18/20 08:49 Urine Culture - Final Urine,Voided Assessment and Plan Assessment: I agree the patient is cognitively intact but seems possibly jeff versus morphine dependence/addiction History of cervical fracture from a fall in the past with Cervical fusion from C1-C7 Also according to patient he had the history of other back fracture from falls Elevated liver function--trending down Hyperkalemia---resolved Mild acute kidney injury---improved Extremity cellulitis Benign Hypertension Plan: I ordered that TSH level. Physical therapy and occupation therapy are consulted. Psychiatry was consulted My opinion because of the patient's multiple falls and as a result of fractures. The patient is not safe to live independently. I think he'll benefit from assisted living facility or someone living with him or having supervised care. I recommended the patient to follow-up with a neurologist as an outpatient within 2-3 weeks. There is no further neurological workup needed. Will sign off. Please reconsult if needed. Lacho Field MD Neuro-hospitalist Time with Patient: Less than 30
[2020-07-19] MEDS ORDERED: ESCITALOPRAM 10 MG TAB PO STA (13:57)
--- NOTE | 2020-07-19 14:15 | P.CN ---
Psychiatric Consult - . Consult date: 07/19/20 Consult:: 07/19/20 14:00 IDENTIFYING DATA: This patient is a 59-year-old male who is currently single lives alone in apartment has no kids and is currently unemployed. REASON FOR REFERRAL: Psychiatry was consulted for psychiatric evaluation. HISTORY OF PRESENT ILLNESS: The patient presented to the hospital and complained of unclear symptoms when he came into the ER. According the ER report patient was apparently having "thoughts scattered" and was overwhelmed with his pain and spoke about abdominal pain and distention. Patient was brought in by EMS and according to ER report patient was having altered mental status when he was initially picked up from his apartment. ER report also claimed that patient's apartment was filthy and unclean. Patient had reported that he had turned up the thermostat to high in his apartment and was feeling dizzy. The patient's sodium was 133 potassium was 61 and BUN was 28 on admission however these have improved since being in the hospital. Urinalysis was negative UDS was positive for benzodiazepine and opiates. Patient had elevated AST/ALT levels however these have also been improving since being admitted. Patient had a computed tomography scan which was negative of his head. Patient was admitted to the medical floors for AMS and hyperkalemia. Nurse taking care of patient states that the team is wondering if patient has the capacity to take care of himself as it was reported the patient has been refusing to shower/B based and cleaned and also has been refusing to see gastroenterology and uncooperative with care. Patient was seen lying down in the bed and appeared to be fairly stiff and was complaining about pain and "multiple medical problems" however was fairly vague and defensive when the poem writer asked for patient to explain more about them. She repeated "look at my chart I shouldn't have to tell you that stuff". He was fairly uncooperative with poem writer and argumentative. He appeared to be demonstrating poor insight and judgment into his condition and his capability to care for himself. Patient appeared to be disheveled in appearance. He was fairly superficial with poem writer in answering most questions. He states that he's been feeling overwhelmed and admitted to having a history of depression and anxiety. Patient was fairly defensive about his living condition and minimized the condition of his apartment. At this time patient denies any suicidal or homical ideations, intent or plan. Patient denies any auditory, visual hallucinations. Patient was demonstrating some mild paranoia and suspiciousness toward poem writer. Patients admits to using no recreational drugs or alcohol. Patient was fairly defensive and argumentative about his medications and also being treated by a psychiatrist and claims that he only wants to be treated by Dr. Baird to perscribe his medications. Patient states that he was not able to clean his legs properly for several months. PAST PSYCHIATRIC HISTORY: Patient has a a history of depression and anxiety. Patient is currently on Lexapro 10 mg daily and Klonopin 0.5 mg 4 times a day. Patient denies any previous psychiatric hospitalizations. Patient denies any psychiatric outpatient follow-up. Patient denies any history of suicide attempts in the past. PAST MEDICAL HISTORY: Hypertension, chronic pain?. ALLERGIES: as per EMR. CHEMICAL DEPENDENCY HISTORY: as per HPI. 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 He states that he completed 6 years of college after high school. He states that he currently lives alone in apartment is single and has no kids. He states that he does not have any legal or history.. MENTAL STATUS EXAM: General Appearance: Patient appears to be overweight, stated age is alert, uncooperative and argumentative at times. Patient appears to have poor/disheveled hygiene and grooming wearing hospital gown with fair eye contact. Behavior: Patient is calmly lying in bed without any agitated behavior. Uncooperative and argumentative. Appears to be an pain and not moving in the bed. Speech: Patient's speech is fluent and nonpressured. Monotone and irritable at times. Mood/Affect: Patient reports their mood is "depressed", affect is incongruent Suicidality/Homicidality: Patient denies having any suicidal or homicidal idea tion intent or plan. Perceptions: Patient denies any visual hallucinations and denies any auditory hallucinations Though content/process: Patient is argumentative, illogical at times. Rambles. Tangential/circumstantial. Denies any delusions. Mild paranoia and suspiciousness toward poem writer. Memory and concentration: AOX3, grossly intact for the purposes of this session. Can spell "WORLD" backwards Judgment and insight: poor IMPRESSIONS: Depressive disorder unspecified Possible autism spectrum disorder PLAN: -At this time patient DOES NOT meet criteria for inpatient psychiatric admiss ion. -Patient DOES NOT have decision making capacity at this time and is unable to reason through and communicate/appreciate the risks, benefits and alternatives to treatment. Patient also has been demonstrating that he is not able to care for himself at home including cleaning, bathing and attending to his medical comorbidities. -Would recommend the following medication changes/additions: Started Risperdal 1 mg daily at bedtime for mood stabilization/irritability/insomnia. Increase Lexapro to 20 mg daily for mood/anxiety. Can continue with Klonopin 0.5 mg 4 times a day as prescribed. -cushion worker to provide patient with outpatient mental health/psychiatry resources for appropriate follow up upon discharge -Communicated plan to patient's nurse. -SW/CM to look into placement options as patient has demonstrated poor insight and judgment and evidently cannot care for himself at home and attend to his self hygiene/cleaning and attend to his medical comorbidities. -Will continue to follow along -Please contact with any questions.
[2020-07-19] MEDS: SODIUM CHLORIDE 0.9% 1,000 ML IV SCH (17:25)
--- NOTE | 2020-07-19 17:45 | PN ---
PROGRESS NOTE This patient is a 59-year-old white male who was admitted with hyperkalemia secondary to mild kidney injury. He was seen and put on Bactrim, resolved. Now acute kidney injury, prerenal, with IV hydration. Bactrim can also raise the creatinine by impairing its secretion. Lower extremity cellulitis, on antibiotics. Benign hypertension, controlled. Continue with normal saline. Hold lisinopril. Monitor blood pressures. Infectious Disease said continue with cefazolin for the chronic pain syndrome . Psych saw the patient, says the patient was diagnosed with possible autism spectrum disorder and depressive disorder. He does not have decision-making capacity at this time, in their opinion, and that he is unable to care for himself at home. They started him on Risperdal 1 mg at home, increased Lexapro to 20. Continue Klonopin. Outpatient Psychiatry. Wait for chronic pain syndrome physician, LAMONTE / JAZZ: [id number] /
--- NOTE | 2020-07-19 20:55 | PN ---
PROGRESS NOTE DATE OF SERVICE: 07/19/2020 REASON FOR FOLLOWUP: Lower extremity cellulitis. INTERVAL HISTORY: The patient is currently afebrile, has been breathing comfortably. Denies having any chest pain or shortness of breath. Occasional cough. Still complaining of abdominal distention. No worsening pain to the lower extremity. PHYSICAL EXAMINATION: Blood pressure 153/86, pulse of 65, temperature 98.4. He is 97% on room air. General description is a middle-aged male lying in bed in no distress. RESPIRATORY SYSTEM: Unlabored breathing. Clear to auscultation anteriorly. HEART: S1, S2. Regular rate and rhythm. ABDOMEN: Soft. Slightly distended. EXTREMITIES: Dry skin. Minimal redness. No drainage. LABS: Hemoglobin is 15.2, white count 6.9, BUN of 23, creatinine 0.98. DIAGNOSTIC IMPRESSION AND PLAN: Patient with bilateral lower extremity overall poor hygiene with concern for mild cellulitis. The patient is currently covered with cefazolin; to continue and monitor his clinical course closely. MMODL / IJN: [id number] /
[2020-07-19] MEDS ORDERED: risperiDONE 1 MG TAB PO SCH (21:00)
[2020-07-20] MEDS: SODIUM CHLORIDE 0.9% 1,000 ML IV SCH (06:18)
--- NOTE | 2020-07-20 07:12 | P.PAINCN ---
History of Present Illness - Reason for Consult Consult date: 07/20/20 - History of Present Illness 59 yo male who presented to ED with AMS, hyperkalemia, abdominal pain. He has a hx of neck surgery, appears to be an extensive posterior fusion. He has complaints of neck, thoracic, lumbar pain. He also complains of lower extremity pain. He is a poor historian and extremely tangential in conversation. His pain is rated as a 9/10 in severity, its sharp and throbbing in his spine. he describes his feet as burning. Also complaining of abdominal pain, A CT Scan showed a ventral hernia without any obstruction. He denies any constipation. He is on chronic opioid therapy taking MS Contin 30mg Q6H, Neurontin, and clonazepam. He states his pain is not adequately controlled on this regimen. He has been getting IV dilaudid since being in the hospital which is also not controlling his pain. Review of Systems Constitutional: Denies chills, Denies fever Ears, nose, mouth and throat: Denies headache, Denies sore throat Cardiovascular: Denies chest pain, Denies shortness of breath Respiratory: Denies cough Gastrointestinal: Reports abdominal pain, Denies diarrhea, Denies nausea, Denies vomiting Musculoskeletal: Reports myalgias, Reports neck pain, Reports neck stiffness Neurological: Reports numbness, Denies weakness Psychiatric: Reports anxiety, Reports depression, Reports paranoia Past Medical History Past Medical History: Unable to Obtain, Hypertension Additional Past Medical History / Comment(s): chronic pain History of Any Multi-Drug Resistant Organisms: None Reported Past Surgical History: Back Surgery, Orthopedic Surgery Additional Past Surgical History / Comment(s): neck surgery Past Psychological History: Anxiety Smoking Status: Former smoker Past Alcohol Use History: Abuse Past Drug Use History: None Reported Medications and Allergies Home Medications Medication Instructions Recorded Confirmed Type Escitalopram [Lexapro] 10 mg PO DAILY 07/17/20 07/17/20 History Fluticasone Nasal [place] [Flonase 2 spr EA NOSTRIL DAILY 07/17/20 07/17/20 History Nasal Overton] Gabapentin 600 mg PO TID 07/17/20 07/17/20 History Morphine Sulfate ER [Ms Contin] 60 mg PO BID 07/17/20 07/17/20 History Pantoprazole Sodium [Protonix] 40 mg PO BID 07/17/20 07/17/20 History Sulfamethox-Tmp 800-160Mg [Bactrim 1 tab PO BID 07/17/20 07/17/20 History DS 800-160 mg] clonazePAM [KlonoPIN] 0.5 mg PO QID 07/17/20 07/17/20 History lisinopriL 20 mg PO DAILY 07/17/20 07/17/20 History Allergies Allergy/AdvReac Type Severity Reaction Status Date / Time No Known Allergies Allergy Verified 07/17/20 22:47 Physical Exam Vitals: Vital Signs Temp Pulse Resp BP BP Pulse Ox 07/20/20 04:00 97.4 F L 66 17 128/83 95 07/20/20 02:00 90 15 07/19/20 23:37 98.2 F 94 15 134/63 96 07/19/20 20:00 98.3 F 83 16 121/74 95 07/19/20 16:00 98.4 F 65 16 153/86 97 07/19/20 12:00 98.5 F 66 18 137/88 93 L 07/19/20 09:40 97.8 F 76 18 128/90 96 Intake and Output 07/19/20 07/19/20 07/20/20 14:59 22:59 06:59 Intake Total 540 240 Output Total 500 Balance 540 240 -500 Intake: Intake, IV Titration 300 Amount Sodium Chloride 0.9% 1, 250 000 ml @ 50 mls/hr IV . Q20H [facility] Rx#:[id number] ceFAZolin 1,000 mg In 50 Sodium Chloride 0.9% 50 ml @ 100 mls/hr IVPB Q8HR [facility] Rx#:[id number] Oral 240 240 Output: Urine 500 Other: Voiding Method Urinal Urinal Urinal Weight 89 kg - Constitutional General appearance: disheveled, mild distress, no acute distress - EENT Eyes: fundus normal, poor dentition - Cardiovascular Rhythm: regular Abnormal Heart Sounds: no systolic murmur, no diastolic murmur, no rub, no S3 Gallop, no S4 Gallop, no click, no other - Gastrointestinal General gastrointestinal: no distended, soft, ventral hernia - Musculoskeletal muscle strength in upper and lower extremities is equal and symmetrical. tenderness along the cervical and lumbar spine appreciated. Musculoskeletal: strength equal bilaterally - Psychiatric Psychiatric: A&O x's 3 Results CBC & Chem 7: 07/19/20 06:24 07/19/20 06:24 Labs: Abnormal Lab Results - Last 24 Hours (Table) 07/19/20 Range/Units 06:24 Sodium 134 L (137-145) mmol/L BUN 23 H (9-20) mg/dL AST 66 H (17-59) U/L ALT 57 H (4-49) U/L Microbiology - Last 24 Hours (Table) 07/18/20 08:49 Urine Culture - Final Urine,Voided Assessment and Plan Assessment: 1. 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 Peripheral neuropathy vs CRPS NOS of the lower extremities. 3. Acute abdominal pain 4. Depression Plan: 1. I recommend continuing patients home regimen of medication. His pain does not appear to be out of proportion to his day to day pain. His symptoms are chronic in nature with the exception of abdominal pain. Consider surgical consult for ventral hernia. 2. MS Contin 30mg Q 6H, continue Neurontin, and minimize IV dilaudid to 1-2x day. 3. Patient could have a component of hyperalgesia considering chronic/long duration high dose opioid use. He could benefit from outpatient detox/rehab. PQRS Measure Charge Sheet PQRS Narrative: Do You Want the Pneumonia Vaccine Up to Date Vaccine AT THIS TIME? Blood Pressure [Left Arm] 128/83 Blood Pressure [Right Arm 134/63 Supine] Blood Pressure [Right Arm 157/92 Sitting] Blood Pressure 145/68 Pain Intensity [Back] 0 Pain Intensity [None] 0 Pain Intensity 4 Pain Scale Used Numeric (1 - 10) Scale Used Numeric (1 - 10) Home Medications: Ambulatory Orders Escitalopram [Lexapro] 10 mg PO DAILY 07/17/20 Fluticasone Nasal Overton [Flonase Nasal [place]] 2 spr EA NOSTRIL DAILY 07/17/20 Gabapentin 600 mg PO TID 07/17/20 Morphine Sulfate ER [Ms Contin] 60 mg PO BID 07/17/20 Pantoprazole Sodium [Protonix] 40 mg PO BID 07/17/20 Sulfamethox-Tmp 800-160Mg [Bactrim DS 800-160 mg] 1 tab PO BID 07/17/20 clonazePAM [KlonoPIN] 0.5 mg PO QID 07/17/20 lisinopriL 20 mg PO DAILY 07/17/20
[2020-07-20 08:12] LABS: African American GFR (CKD) >90 (>60 ml/min/1.73 sqM); Anion Gap 7 mmol/L; Blood Urea Nitrogen 20 mg/dL (9-20); Calcium 9.2 mg/dL (8.4-10.2); Carbon Dioxide 28 mmol/L (22-30); Chloride 100 mmol/L (98-107); Glucose 92 mg/dL (74-99); Magnesium 1.8 mg/dL (1.6-2.3); Non-African American GFR(CKD) 89 (>60 ml/min/1.73 sqM); Potassium 4.5 mmol/L (3.5-5.1); Sodium 135 mmol/L (137-145)
[2020-07-20] MEDS ORDERED: ESCITALOPRAM 20 MG TAB PO SCH (09:00)
--- NOTE | 2020-07-20 09:42 | P.PN ---
Subjective Patient is seen in follow-up for hyperkalemia and mild acute kidney injury. Renal function back to baseline. Potassium level normal. Patient is not a reliable historian. Hemodynamically stable. Vital signs are stable. General: The patient appeared well nourished and normally developed. HEENT: Head exam is unremarkable. Neck is without jugular venous distension. LUNGS: Breath sounds decreased. HEART: Rate and Rhythm are regular. ABDOMEN: Soft, nontender. EXTREMITITES: No edema. Objective - Vital Signs Vital signs: Vital Signs Temp 97.4 F L 07/20/20 04:00 Pulse 66 07/20/20 04:00 Resp 17 07/20/20 04:00 BP 128/83 07/20/20 04:00 Pulse Ox 95 07/20/20 04:00 Intake & Output 07/19/20 07/20/20 07/20/20 18:59 06:59 18:59 Intake Total 540 240 240 Output Total 500 Balance 540 -260 240 Weight 89 kg Intake: Intake, IV Titration 300 Amount Sodium Chloride 0.9% 1, 250 000 ml @ 50 mls/hr IV . Q20H [facility] Rx#:[id number] ceFAZolin 1,000 mg In 50 Sodium Chloride 0.9% 50 ml @ 100 mls/hr IVPB Q8HR [facility] Rx#:[id number] Oral 240 240 240 Output: Urine 500 Other: Voiding Method Urinal Urinal - Labs CBC & Chem 7: 07/19/20 06:24 07/20/20 06:46 Labs: Abnormal Lab Results - Last 24 Hours (Table) 07/20/20 Range/Units 06:46 Sodium 135 L (137-145) mmol/L Microbiology - Last 24 Hours (Table) 07/18/20 08:49 Urine Culture - Final Urine,Voided Assessment and Plan Plan: Assessment: 1. Hyperkalemia secondary to mild acute kidney injury, lisinopril and Bactrim. Resolved. 2. Mild acute kidney injury mostly prerenal improved with IV hydration. Bactrim can also raise the creatinine by impairing its secretion. 3. Lower extremity cellulitis maintained on antibiotics. Infectious disease following. 4. Benign hypertension. Controlled. Plan: No changes from nephrology standpoint. I will sign off. Please call with any questions or concerns.
[2020-07-20 09:54] LABS: Albumin 3.9 g/dL (3.5-5.0); Bilirubin, Delta 0.3 mg/dL (0.0-0.2); Bilirubin,Unconjugated 0.2 mg/dL (0.0-1.1); Total Bilirubin 0.5 mg/dL (0.2-1.3); Total Protein 7.2 g/dL (6.3-8.2)
[2020-07-20] MEDS: MORPHINE SULFATE ER 30 MG TABLET PO SCH ×2 (10:13→22:02)
[2020-07-20] MEDS: PANTOPRAZOLE 40 MG TABLET PO SCH ×2 (10:14→22:02)
[2020-07-20] MEDS: GABAPENTIN 300 MG CAP PO SCH ×3 (10:14→22:01)
[2020-07-20] MEDS: clonazePAM 0.5 MG TAB PO SCH ×4 (10:14→22:11)
[2020-07-20] MEDS: SENNOSIDES-DOCUSATE SODIUM 1 EACH TAB PO SCH ×2 (10:16→22:04)
[2020-07-20] MEDS: FLUTICASONE 50MCG/SPRAY NASAL 16GM EA NOSTRIL SCH (10:16)
--- NOTE | 2020-07-20 10:27 | CT ---
EXAMINATION TYPE: CT lumbar spine wo con DATE OF EXAM: 07/20/2020 COMPARISON: None HISTORY: Lumbar DDD/Brace placement CT DLP: 1625.6 mGycm CONTRAST: None TECHNIQUE: CT of the lumbar spine is performed on a spiral scan at 3 mm thick sections. Reconstructed images are performed in the coronal and sagittal planes. FINDINGS: T12-L1: No focal disc herniation or significant disc bulge is evident. No spinal canal stenosis is present. Facet hypertrophy on the left has posterior lateral thecal sac compression at this level. L1-L2: No focal disc herniation or significant disc bulge is evident. No spinal canal stenosis or n eural foraminal stenosis is present. Facet hypertrophy is present. L2-L3: Disc bulge is present with mild anterior thecal sac flattening. Facet hypertrophy is present. No spinal canal stenosis is present. There is moderate right foraminal stenosis L3-L4: Broad-based disc bulge has mild anterior thecal sac flattening. Facet hypertrophy and ligament um flavum laxity has posterior lateral thecal sac compression. Some canal narrowing through this vern on may be present. Neural foramen appear patent L4-L5: Broad-based disc bulge has mild anterior thecal sac flattening. Facet hypertrophy and ligament um flavum laxity has posterior lateral thecal sac compression. Mild spinal canal stenosis through thi s region is likely present. There appears to be severe left and moderate to severe right foraminal st enosis. L5-S1: Minimal disc bulge may be present. Facet hypertrophy is present. No spinal canal stenosis is p resent. Mild foraminal narrowing is present. Scoliosis is evident. There is loss of disc height L4-5. IMPRESSION: 1. Facet hypertrophy with ligamentum flavum laxity contributing to some spinal canal narrowing greate st at L4-5. Milder narrowing may be present L3-4. 2. Facet hypertrophy contributing to foraminal narrowing discussed above. This appears greatest at th e L4-5 level.
--- NOTE | 2020-07-20 12:30 | PN ---
PROGRESS NOTE DATE OF SERVICE: 07/20/2020 REASON FOR FOLLOWUP: Bilateral lower extremity cellulitis. INTERVAL HISTORY: The patient is currently afebrile, has been breathing comfortably. Denies having any chest pain or cough. No abdominal pain or pain to the lower extremities. PHYSICAL EXAMINATION: Blood pressure is 121/79 with pulse of 79, temperature 98.3. He is 93% on room air. General description is a middle-aged male lying in bed in no distress. RESPIRATORY SYSTEM: Unlabored breathing, clear to auscultation anteriorly. HEART: S1, S2. Regular rate and rhythm. ABDOMEN: Soft, no tenderness. EXTREMITIES: Over legs all the crusting has gone, minimal redness, no drainage. LABS: White count 6.9. Creatinine 0.93. Potassium normal. DIAGNOSTIC IMPRESSION AND PLAN: Patient with bilateral lower extremity minimal cellulitis clinically responding cefazolin, finish therapy with short course of oral Keflex. All questions and concerns were answered. MMODL / IJN: [id number] /
[2020-07-20] MEDS: SIMETHICONE 80 MG CHEWABLE PO SCH ×3 (12:37→22:09)
--- NOTE | 2020-07-20 14:16 | P.PN ---
Progress Note - Text Progress Note Date: 07/20/20 Interval History: Patient was seen today for psychiatric follow-up regarding his depression. Hermes kraft did not take Risperdal last night and asked for his Lexapro to be decreased down to 10 mg and only took 10 mg today. Patient was seen at the bedside and appeared to have an improvement in his affect and was more cooperative today with policy writer. He claims that he was sorry and apologized for his "rudeness yesterday". He states that he was defensive about his medications and explained why he did not take the Risperdal as he "saw commercials and bad things about it". He also claims that the Lexapro at higher doses makes him feel too anxious and feels that 10 mg is the right dose for him. He states that today his pain has improved and he feels better overall with regards to his mood and anxiety. He states that he was able to sleep better last night. He states that he is continuing to have pain however had a computed tomography scan and wants to continue to follow-up with his primary care physician. At this time patient denies any suicidal or homical ideations, intent or plan. Patient denies any auditory, visual hallucinations and denies any paranoia or delusions. Patient denies any side effects from the medications and has been compliant with meds. Mental Status Exam: General Appearance: Patient appears to be overweight, stated age is alert, more cooperative today and directable. Patient appears to have improving hygiene and grooming wearing hospital gown with fair eye contact. Behavior: Patient is calmly lying in bed without any agitated behavior. More cooperative today. Speech: Patient's speech is fluent and nonpressured. Monotone and concrete Mood/Affect: Patient reports their mood is "better", affect is congruent and appears to be brighter today. Suicidality/Homicidality: Patient denies having any suicidal or homicidal ideation intent or plan. Perceptions: Patient denies any visual hallucinations and denies any auditory hallucinations Though content/process: Patient continues to ramble at times and is tangential/circumstantial. No paranoia today or any delusions. Logical. Memory and concentration: AOX3, grossly intact for the purposes of this session Judgment and insight: Improving Assessment Depressive disorder unspecified likely autism spectrum disorder chronic pain disorder Plan: -At this time patient DOES NOT meet criteria for inpatient psychiatric admission. -Would recommend the following medication changes/additions: Will discontinue Risperdal as patient is not willing to take it and his mood lability and agitation have improved. Continue with Lexapro to 10 mg daily for mood/anxiety. Can continue with Klonopin 0.5 mg 4 times a day as prescribed. -mud worker to provide patient with outpatient mental health/psychiatry resources for appropriate follow up upon discharge. Patient will also be following up with his PCP upon discharge. -Communicated plan to patient's nurse. -At this time psychiatry will sign off. -Please contact with any questions.
--- NOTE | 2020-07-20 14:56 | PN ---
PROGRESS NOTE Doug Savage is supposed to be getting a back brace for which a lumbar CAT scan will be ordered and a consult with Neurosurgery. He has facet arthropathy, posterior lateral thecal sac compression, severe left and moderate to severe right foraminal stenosis. Consult Neurosurgery is intact. Await for their recommendations. He is alert and oriented x3. Dr. Jean sees him for significant cellulitis of the legs. He continues with IV cefazolin, possibly oral Keflex as an outpatient. Await for neurosurgery to clear him prior to going home. He is refusing to increase in the psych medications as Psychiatry ordered. He wants a new back brace prior to going home. He agrees to have [facility] on discharge. LUNGS: Clear. CARDIOVASCULAR: S1, S2. ABDOMEN: Distended. Increased bowel sounds. He wants a GI doctor to see him for his abdominal pain. We are still waiting for the consultation to be done. When this is done, possibly we can get him home. He was seen by pain management consultation. Postsurgical pain cervical spine. He has severe stenosis of the lumbar spine, peripheral neuropathy, abdominal pain, depression. Current home medication. His pain is not out of proportion to his day-to-day pain. Waiting for brace. Surgical consult for ventral hernia. Continue current medications. Please see further orders. MMODL / IJN: [id number] /
--- NOTE | 2020-07-20 17:22 | CONS ---
CONSULTATION DATE OF DICTATION: 07/20/2020 REASON FOR CONSULTATION: Epigastric pain and abdominal bloating. HISTORY OF PRESENT ILLNESS: The patient is a 59-year-old pleasant white male admitted to the hospital with abdominal pain, abdominal bloating, altered mental status, as well as chronic pain all over the body on and off for the last several months' duration. The patient is currently being seen by multiple specialists, including psychiatrist. The reason GI was consulted is because of epigastric pain and abdominal bloating for the last one year's duration. Patient states that the pain is mostly in the epigastric as well as sometimes in the periumbilical area associated with severe abdominal bloating and fullness and early satiety. He denies any nausea, vomiting. He reports no recent weight loss. He has been having chronic constipation because of morphine that he uses for chronic pain syndrome. He did have a CT of the abdomen and pelvis done that showed a large ventral hernia, but no other abnormality was noted. The patient denies any prior history of peptic ulcer disease or recent NSAID use. He denies any heartburn. He has no history of EGD or colonoscopy in the past. At the time of admission to the hospital he was noted to have mild elevation of serum transaminases with ALT and AST in the range of 55 and 45, respectively. Repeat labs from today are within normal limits. The patient denies any history of chronic liver disease. PAST MEDICAL HISTORY: Significant for hypertension, chronic pain syndrome, chronic back pain, gastroesophageal reflux disease, anxiety, depression. MEDICATIONS: Medications at home include Klonopin, Lexapro, Neurontin, morphine sulfate, . PAST SURGICAL HISTORY: Neck surgery as well as back surgery. SOCIAL HISTORY: Remote history of smoking. No history of alcohol use. FAMILY HISTORY: Unremarkable. ALLERGIES: NO KNOWN DRUG ALLERGIES. REVIEW OF SYSTEMS: CARDIOPULMONARY: He denies any chest pain or shortness of breath. GENITOURINARY: No dysuria or hematuria. MUSCULOSKELETAL: Chronic pain syndrome. NEUROLOGY: Unremarkable. PSYCHIATRIC: Has some problems with concentration, anxiety, depression. ENT/VISION: Unremarkable. CONSTITUTIONAL: No recent weight loss. No fever, chills, night sweats. GI: As mentioned above. PHYSICAL EXAMINATION: Blood pressure 143/96, pulse rate 53, temperature 97.9. HEENT examination unremarkable. Conjunctivae pink. Sclerae anicteric. Oral cavity no lesions. NECK: No JVD or lymph node enlargement. CHEST: Clear to auscultation. HEART: Regular rate and rhythm. ABDOMEN: Slightly distended. Bowel sounds are positive. There was tenderness in the epigastric area. Rest of the abdomen was benign. Ventral hernia noted. EXTREMITIES: No pedal edema. NEUROLOGIC: Alert and oriented x3. No focal deficits. LABS: WBC 5.7, hemoglobin 15, platelets normal. Basic metabolic panel is within normal limits. Potassium was 6.1, but today it is 4.5. ALT, AST, T-bilirubin, alkaline phosphatase are within normal limits. ALT was 75 and AST was 114 at the time of admission to the hospital, but today they are 49 and 44, respectively. Hepatitis serologies for A, B and C are negative. IMPRESSION: 1. The patient presented to the hospital with epigastric discomfort with abdominal bloating, early satiety, associated with some nausea but no emesis, on and off for the last one year's duration. Symptoms have been progressively getting worse. No prior history of upper GI pathology. No history of peptic ulcer disease or NSAID use. 2. Chronic constipation with intermittent lower abdominal pain related to pain medications. No prior history of colonoscopy in the past. 3. Chronic pain syndrome. 4. History of anxiety and depression. Psychiatry has been consulted. RECOMMENDATIONS: 1. Continue with Protonix 40 mg twice daily. 2. Small frequent meals. 3. Because of the ongoing GI symptoms, I recommended an EGD and colonoscopy. At this time, patient wants to think about it. I recommended at least having an upper endoscopy during this hospitalization, and colonoscopy can be done on an outpatient basis when his overall condition improves. In the meantime, we will follow with you closely. Thank you for this consultation. MMODL / IJN: [id number] /
[2020-07-20] MEDS: polyethylene glycoL 3350 17 GM POWD.PACK PO SCH (22:04)
[2020-07-21] MEDS: SODIUM CHLORIDE 0.9% 1,000 ML IV SCH ×2 (06:59→21:20)
--- NOTE | 2020-07-21 08:36 | P.CNOR ---
History of Present Illness - [facility] Consult date: 07/20/20 Requesting physician: Gautam Mujica Consult reason: other (Thoracolumbar brace management) History of present illness: Patient is a 59-year-old male who is seen and examined at the bedside after consultation was placed for brace management. He was originally brought to emergency department on 07/17/2020 for altered mental status. Patient is awake, alert, oriented the bedside and answering questions fairly well without difficulty. Patient is known have previously followed with Dr. Mynor Tao at [facility]. He states he is known to have multiple thoracic compression fracture deformities. He states he underwent a kyphoplasty at approximately T8 in 2017. He sustained another compression fracture deformity in 2019. He was previously prescribed a TLSO brace. He has become dependent upon this brace. He states when he was brought to the hospital by the EMS the brace was not brought with him. He does not feel safe enough to be out of bed without the brace intact. He relies on the brace at all times except while lying in bed. He states he has significant increased thoracic back pain without having his brace intact. He does take narcotic pain medication and outpatient setting for pain control as prescribed by his primary care provider, Dr. Gautam Carroll. He is able to perform active range of motion bilateral lower extremities in the bed. He does admits to some neuropathy in the bilateral lower extremities. Patient states multiple times at the bedside his chronic pain is severe. During his admission he has been seen by neurology, nephrology, psychiatry, pain management, and medicine. During his admission he is also being treated for hyperkalemia and elevated liver enzymes in addition to his altered mental status. Patient's other medical diagnoses include hypertension. Past Medical History Past Medical History: Unable to Obtain, Hypertension Additional Past Medical History / Comment(s): chronic pain History of Any Multi-Drug Resistant Organisms: None Reported Past Surgical History: Back Surgery, Orthopedic Surgery Additional Past Surgical History / Comment(s): neck surgery Past Psychological History: Anxiety Smoking Status: Former smoker Past Alcohol Use History: Abuse Past Drug Use History: None Reported Medications and Allergies Home Medications Medication Instructions Recorded Confirmed Type Escitalopram [Lexapro] 10 mg PO DAILY 07/17/20 07/17/20 History Fluticasone Nasal [place] [Flonase 2 spr EA NOSTRIL DAILY 07/17/20 07/17/20 History Nasal [place]] Gabapentin 600 mg PO TID 07/17/20 07/17/20 History Morphine Sulfate ER [Ms Contin] 60 mg PO BID 07/17/20 07/17/20 History Pantoprazole Sodium [Protonix] 40 mg PO BID 07/17/20 07/17/20 History Sulfamethox-Tmp 800-160Mg [Bactrim 1 tab PO BID 07/17/20 07/17/20 History DS 800-160 mg] clonazePAM [KlonoPIN] 0.5 mg PO QID 07/17/20 07/17/20 History lisinopriL 20 mg PO DAILY 07/17/20 07/17/20 History Naproxen Sodium [Aleve] 440 mg PO BID 07/21/20 07/21/20 History Allergies Allergy/AdvReac Type Severity Reaction Status Date / Time No Known Allergies Allergy Verified 07/17/20 22:47 Physical Examination Physical exam: Patient is awake, alert, and oriented 3 and seems to be answering questions appropriately Vital signs stable Examination of thoracic and lumbar spine reveals skin is intact with no abrasions, lacerations, or bruises; no erythema, purulence or signs of infection No significant pain with palpation over the thoracic and lumbar spines I do not visualize the previous kyphoplasty site Has difficulty rolling over in bed and is reluctant to do so without significant assistance Dorsiflexion, plantarflexion, and extensor hallucis longus positive sustained bilaterally Patient is able to lift legs off the bed independently and laterally Some skin changes the bilateral lower extremities Patient admits to change in sensation with palpation of bilateral lower extremities Straight leg test negative bilateral lower extremities No signs or symptoms of DVT; no calf pain No pain with internal and external rotation of the hips bilaterally Neurovascularly intact Results Pertinent studies: CT of the lumbar spine taken on 07/20/2020: L1-2 facet hypertrophy; L2-3 facet hypertrophy and disc bulge with moderate right neural foraminal stenosis; L3-4 broad based disc bulge, facet hypertrophy, ligamentum flavum laxity resulting in some spinal canal narrowing; L4-5 degenerative disc disease, broad-based disc bulge, facet hypertrophy, ligamentum flavum laxity resulting in mild spinal canal stenosis with severe left and moderate to severe right neural foraminal stenosis; L5-S1 minimal disc bulge and facet hypertrophy with mild neural foraminal narrowing; evidence of some marginal syndesmophytes T12-S1; mild degenerative scoliosis; no evidence of spondylolisthesis CT of the abdomen pelvis reviewed for orthopedic purposes taken on 07/18/2020: Mild wedging T11 compression fracture deformity of indeterminate age; marginal syndesmophytes T12-L1; no other vertebral body compression fracture deformities identified; no spondylolisthesis; L4-5 degenerative disc disease - Labs Labs: Abnormal Lab Results - Last 24 Hours (Table) 07/20/20 07/20/20 Range/Units 06:46 06:46 Sodium 135 L (137-145) mmol/L Delta Bilirubin 0.3 H (0.0-0.2) mg/dL Microbiology - Last 24 Hours (Table) 07/18/20 08:49 Urine Culture - Final Urine,Voided H & H 07/17/20 07/19/20 Range/Units 22:40 06:24 Hgb 15.0 15.2 (13.0-17.5) gm/dL Hct 44.0 46.5 (39.0-53.0) % Coagulation 07/17/20 Range/Units 22:40 INR 1.0 (<1.2) Result Diagrams: 07/19/20 06:24 07/20/20 06:46 Assessment and Plan Assessment: Assessment: Chronic thoracolumbar pain Reported history of T8 thoracic kyphoplasty T11 compression fracture deformity of indeterminate age Deconditioning Lumbar degenerative scoliosis Marginal syndesmophytes T12-L1 Lumbar facet hypertrophy L4-5 spinal canal stenosis and neural foraminal stenosis L4-5 degenerative disc disease TLSO dependence due to deconditioning due to prolonged use Hypertension Altered mental status Hyperkalemia Elevated liver enzymes (1) Thoracolumbar back pain Current Visit: Yes Status: Acute Code(s): M54.5 - LOW BACK PAIN; M54.6 - PAIN IN THORACIC SPINE SNOMED Code(s): 236421759 (2) Compression fracture of T11 vertebra Current Visit: Yes Status: Acute Code(s): S22.080A - WEDGE COMPRESSION FRACTURE OF T11-T12 VERTEBRA, INIT SNOMED Code(s): 101775752 (3) Scoliosis of lumbar region due to degenerative disease of spine in adult Current Visit: Yes Status: Acute Code(s): M41.86 - OTHER FORMS OF SCOLIOSIS, LUMBAR REGION SNOMED Code(s): 548489393 (4) Muscular deconditioning Current Visit: Yes Status: Acute Code(s): R29.898 - OTH SYMPTOMS AND SIGNS INVOLVING THE MUSCULOSKELETAL SYSTEM SNOMED Code(s): 78753750 (5) Lumbar degenerative disc disease Current Visit: Yes Status: Acute Code(s): M51.36 - OTHER INTERVERTEBRAL DISC DEGENERATION, LUMBAR REGION SNOMED Code(s): 60654133 (6) Hypertension Current Visit: Yes Status: Acute Code(s): I10 - ESSENTIAL (PRIMARY) HYPERTENSION SNOMED Code(s): 48240073 (7) Elevated liver enzymes Current Visit: Yes Status: Acute Code(s): R74.8 - ABNORMAL LEVELS OF OTHER SERUM ENZYMES SNOMED Code(s): 048583698 (8) Lumbar spinal stenosis Current Visit: Yes Status: Acute Code(s): M48.061 - SPINAL STENOSIS, LUMBAR REGION WITHOUT NEUROGENIC ALEXANDRA SNOMED Code(s): 00567317 (9) Lumbar facet arthropathy Current Visit: Yes Status: Acute Code(s): M47.816 - SPONDYLOSIS W/O MYELOPATHY OR RADICULOPATHY, LUMBAR REGION SNOMED Code(s): 107447854 (10) Altered mental status Current Visit: Yes Status: Acute Code(s): R41.82 - ALTERED MENTAL STATUS, UNSPECIFIED SNOMED Code(s): 676161151 (11) Hyperkalemia Current Visit: Yes Status: Acute Code(s): E87.5 - HYPERKALEMIA SNOMED Cod e(s): 52528977 Plan: Plan: 1. Patient has been discussed in detail with Dr. Eliceo Russo. Imaging has been reviewed by myself and Dr. Eliceo Russo. Patient does have evidence of a T11 compression fracture deformity of indeterminate age. He has a reported history of previous kyphoplasty at T8 deformity in 2017. He also has a history of previous thoracic compression fracture which she underwent treatment in 2019. He has followed Dr. Mynor Tao the outpatient setting. Patient has been significantly dependent on his TLSO brace. He states he is unable to ambulate or perform any regular activities of daily living without his brace intact. He states he did not recover well from his previous fractures. He wears the brace at all times except while lying in bed. He is brought to the emergency department via EMS without his brace. He states he is unable to ambulate or get out of bed without significant difficulty without significant assistance during his admission to the hospital without his brace intact. He is unsure of exactly when the brace is previous he prescribed. At this time we will plan to try to obtain a new Spinomed TLSO brace. A prescription has been written and provided to case management for a Spinomed TLSO brace. Once this brace is delivered and fitted appropriately, patient should wear this brace for comfort and support during ambulation increase activities only as needed. Patient does not appear to have a acute compression fracture deformity at T11 on physical exam. He appears to be reliant on this brace due to deconditioning. We did discuss the importance of trying to perform some activities without this brace intact. The patient is unable to be fitted for a new brace we did discuss he would still be cleared to increase mobility and ambulation without the brace intact. Following fitting of this brace, patient is clear for discharge from an orthopedic spine standpoint. We are not currently planning for any surgical intervention at his thoracic or lumbar spines. He is encouraged to follow up with Dr. Mynor Tao in the outpatient setting for further treatment and evaluation in regards to his thoracic and lumbar spine as he is followed with him previously and has also undergone surgical intervention with him in the outpatient setting. 2. Patient will continue be seen and examined by multiple other medical providers including medicine, neurology, nephrology, psychology, and pain management Time with Patient: Greater than 30 (Including obtaining history, physical examination, reviewing of imaging, and dictation.)
[2020-07-21] MEDS: GABAPENTIN 300 MG CAP PO SCH ×3 (08:44→22:22)
[2020-07-21] MEDS: MORPHINE SULFATE ER 30 MG TABLET PO SCH ×2 (08:45→21:18)
[2020-07-21] MEDS: clonazePAM 0.5 MG TAB PO SCH ×4 (08:45→22:22)
[2020-07-21] MEDS: ESCITALOPRAM 10 MG TAB PO SCH (08:45)
[2020-07-21] MEDS: PANTOPRAZOLE 40 MG TABLET PO SCH ×2 (08:45→21:19)
[2020-07-21] MEDS: SENNOSIDES-DOCUSATE SODIUM 1 EACH TAB PO SCH ×2 (08:46→21:20)
[2020-07-21] MEDS: FLUTICASONE 50MCG/SPRAY NASAL 16GM EA NOSTRIL SCH (08:46)
[2020-07-21] MEDS: SIMETHICONE 80 MG CHEWABLE PO SCH ×4 (10:09→22:22)
--- NOTE | 2020-07-21 10:13 | P.ARTDOP ---
Arterial Doppler LOWER EXTREMITY ARTERIAL DOPPLER: DATE OF SERVICE: 07/18/2019 Reason for study: Constant leg pain. Doppler waveforms: Multiphasic bilaterally throughout. Pulse volume recording: []. Pressure gradients: None. Ankle-brachial indices: Greater than 1 bilaterally. Toe brachial indices: [] on the right, [] on the left Impression: Normal study.
[2020-07-21 11:08] LABS: African American GFR (CKD) >90 (>60 ml/min/1.73 sqM); Anion Gap 10 mmol/L; Blood Urea Nitrogen 19 mg/dL (9-20); Calcium 9.3 mg/dL (8.4-10.2); Carbon Dioxide 24 mmol/L (22-30); Chloride 103 mmol/L (98-107); Glucose 108 mg/dL (74-99); Non-African American GFR(CKD) 88 (>60 ml/min/1.73 sqM); Potassium 4.7 mmol/L (3.5-5.1); Sodium 137 mmol/L (137-145)
--- NOTE | 2020-07-21 11:14 | P.GSCN ---
History of Present Illness Consult date: 07/21/20 History of present illness: CHIEF COMPLAINT: Abdominal pain with bloating and altered mental status changes HISTORY OF PRESENT ILLNESS: This is a 59-year-old male with a known past medical history of chronic constipation, hypertension and back pain. Patient has been c omplaining of upper abdominal pain with bloating. He also had been having some altered mental status changes. He's been seen by multiple consultants physicians. He is also being treated for bilateral lower extremity cellulitis. He was found to have a T11 compression fracture and evaluated by spinal orthopedics. They've ordered a TLSO back brace. Patient seen by GI service who recommended EGD and colonoscopy due to patient's epigastric abdominal pain with abdominal bloating and nausea. Patient was refused endoscopies. Patient has also been seen by psychiatry who is following in regards patient's depression and likely autism spectrum disorder. Patient had a computed tomography scan of the abdomen and pelvis that showed large wide neck ventral hernia with stretching of the anterior abdominal muscles, hepatic steatosis, colonic diverticulosis. No acute findings. Patient denies any fever or chills or sweats. PAST MEDICAL HISTORY: See list. PAST SURGICAL HISTORY: See list. MEDICATIONS: See list. ALLERGIES: See list. SOCIAL HISTORY: No illicit drug use. REVIEW OF SYSTEMS: CONSTITUTIONAL: Denies fever or chills. HEENT: Denies blurred vision, vision changes, or eye pain. Denies hemoptysis CARDIOVASCULAR: Denies chest pain or pressure. RESPIRATORY: No shortness of breath. GASTROINTESTINAL: See HPI for pertinent findings HEMATOLOGIC: Denies bleeding disorders. GENITOURINARY: Denies any blood in urine or increased urinary frequency. SKIN: Denies pruitis. Denies rash. PHYSICAL EXAM: VITAL SIGNS: Reviewed GENERAL: Well-developed in no acute distress. HEENT: No sclera icterus. Extraocular movements grossly intact. Moist buccal mucosa. Head is atraumatic, normocephalic. No nasal drainage. ABDOMEN: Soft. Nondistended. Nontender NEUROLOGIC: Alert and oriented. Cranial nerves II through XII grossly intact. LABORATORY DATA: WBC 6.9 LFTs have normalized IMAGING: computed tomography scan of the abdomen and pelvis that showed large wide neck ventral hernia with stretching of the anterior abdominal muscles, hepatic steatosis, colonic diverticulosis. No acute findings. ASSESSMENT: 1. Abdominal pain 2. Large wide neck ventral hernia with stretching of the anterior abdominal muscles noted on computed tomography scan PLAN: -No surgical intervention planned -Continue supportive care Thank you for this consultation Physician Video Control Operator note has been reviewed by physician. Signing provider agrees with the documented findings, assessment, and plan of care. Past Medical History Past Medical History: Unable to Obtain, Hypertension Additional Past Medical History / Comment(s): chronic pain History of Any Multi-Drug Resistant Organisms: None Reported Past Surgical History: Back Surgery, Orthopedic Surgery Additional Past Surgical History / Comment(s): neck surgery Past Psychological History: Anxiety Smoking Status: Former smoker Past Alcohol Use History: Abuse Past Drug Use History: None Reported Medications and Allergies Home Medications Medication Instructions Recorded Confirmed Type Escitalopram [Lexapro] 10 mg PO DAILY 07/17/20 07/17/20 History Fluticasone Nasal [place] [Flonase 2 spr EA NOSTRIL DAILY 07/17/20 07/17/20 History Nasal [place]] Gabapentin 600 mg PO TID 07/17/20 07/17/20 History Morphine Sulfate ER [Ms Contin] 60 mg PO BID 07/17/20 07/17/20 History Pantoprazole Sodium [Protonix] 40 mg PO BID 07/17/20 07/17/20 History Sulfamethox-Tmp 800-160Mg [Bactrim 1 tab PO BID 07/17/20 07/17/20 History DS 800-160 mg] clonazePAM [KlonoPIN] 0.5 mg PO QID 07/17/20 07/17/20 History lisinopriL 20 mg PO DAILY 07/17/20 07/17/20 History Naproxen Sodium [Aleve] 440 mg PO BID 07/21/20 07/21/20 History Allergies Allergy/AdvReac Type Severity Reaction Status Date / Time No Known Allergies Allergy Verified 07/17/20 22:47 Surgical - Exam Vital Signs Temp Pulse Resp BP Pulse Ox 98.3 F 88 22 175/89 96 07/17/20 21:57 07/17/20 21:57 07/17/20 21:57 07/17/20 21:57 07/17/20 21:57 Results - Labs 07/19/20 06:24 07/20/20 06:46
--- NOTE | 2020-07-21 12:04 | P.OP ---
Date of Procedure: 07/21/20 Preoperative Diagnosis: Acute cholecystitis Postoperative Diagnosis: Acute cholecystitis Procedure(s) Performed: Laparoscopic cholecystectomy Anesthesia: WILLIAM Surgeon: Zackery Wagner Pathology: other (Gallbladder) Condition: stable Disposition: PACU (The patient was placed on the operating table. The patient received a general endotracheal tube anesthesia. The patients abdomen was prepped and draped in the usual sterile fashion. Through an infraumbilical stab incision, the fascia of the anterior abdominal wall was grasped with a pair of) Description of Procedure: The patient was placed on the operating table. The patient received a general endotracheal tube anesthesia. The patients abdomen was prepped and draped in the usual sterile fashion. Through an infraumbilical stab incision, the fascia of the anterior abdominal wall was grasped with a pair of Kochers and then the Veress needle was placed in the peritoneal cavity. Position of the Veress needle was confirmed with positive drop test. The abdomen was then insufflated. After adequate insufflation, the 10 mm trocar was placed in the peritoneal cavity. Following this the laparoscope was placed in the peritoneal cavity. The patient was placed in the head-up, right side up position and then a 5 mm trocar was placed in the right lateral and right subcostal position under direct visualization. A 8 mm trocar was placed in the epigastric position. The gallbladder was grasped in the fundus and infundib ulum. Traction on the gallbladder was placed in the lateral and the cephalad positions. The triangle of Calot was visualized.. The cystic duct was bluntly dissected until the union of the cystic duct and common bile duct was seen. A critical view of safety was achieved. The cystic duct was then divided and sealed with the Harmonic scissors. A PDS Endoloop was then placed throughout the cystic duct stump. The cystic artery divided and sealed with the Harmonic scissors. The gallbladder was then removed from the liver bed using Harmonic scissors. The gallbladder was then extracted through the epigastric port site. Operative field was checked for any bleeding spots and Harmonic scissors was used to coagulate the liver bed. The abdomen was irrigated. The trocars were removed. The skin was closed using interrupted 3-0 Vicryl suture. Dermabond dressing were applied. The patient tolerated the procedure well.
--- NOTE | 2020-07-21 14:22 | P.PN ---
Subjective Progress Note Date: 07/21/20 Principal diagnosis: Is a 59-year-old pleasant white male patient who was admitted to the hospital with abdominal pain and bloating, as well as altered mental status. He has a history of chronic pain all over his body, especially in his back her last several months duration. Gastroenterology was consulted for epigastric pain and abdominal bloating for the last one years duration. He states he has minimal appetite due to feeling full. He denies any previous upper and lower endoscopies. Yesterday it was ended and offered to have an upper endoscopy and colonosocpy, however he was not agreeable to proceed with any procedures. Today when seen and evaluated he states his abdominal pain and distention has gotten worse, he states he talked to Dr. Mujica and he is now agreeing to having an upper endoscopy only. Tying any nausea or vomiting, black tarry stools or melen a. Objective - Vital Signs Vital signs: Vital Signs Temp 98.2 F 07/21/20 11:25 Pulse 82 07/21/20 11:25 Resp 18 07/21/20 11:25 BP 138/81 07/21/20 11:25 Pulse Ox 97 07/21/20 11:25 Intake & Output 07/20/20 07/21/20 07/21/20 18:59 06:59 18:59 Intake Total 720 240 Output Total 1900 Balance 720 -1900 240 Weight 82 kg Intake: Oral 720 240 Output: Urine 1900 Other: Voiding Method Urinal Urinal # Voids 250 # Bowel Movements 1 - Exam General appearance: The patient is alert, oriented, in no acute distress. HET: Head is normocephalic and atraumatic. Conjunctiva pink. Sclera and icteric. Neck: Supple without lymphadenopathy. Abdomen: Soft, gastric tenderness, distended with bowel sounds. No guarding or rigidity. Extremities: Normal skin color and turgor. No pedal edema Neurological: No focal deficits. Alert and oriented 3. - Labs CBC & Chem 7: 07/19/20 06:24 07/21/20 10:30 Labs: Abnormal Lab Results - Last 24 Hours (Table) 07/21/20 Range/Units 10:30 Glucose 108 H (74-99) mg/dL Assessment and Plan (1) Epigastric abdominal pain Narrative/Plan: This is a patient who presented to the hospital with epigastric discomfort with abdominal bloating, early satiety, associated with some nausea but no emesis on and off for the last one years duration. Symptoms are progressively getting worse, he has had no prior history of upper GI pathology. Denies any history of peptic ulcer disease or NSAID use. Current Visit: Yes Status: Acute Code(s): R10.13 - EPIGASTRIC PAIN SNOMED Code(s): 94503956 (2) Abdominal bloating Current Visit: Yes Status: Acute Code(s): R14.0 - ABDOMINAL DISTENSION (GASEOUS) SNOMED Code(s): 415842451 (3) Constipation Narrative/Plan: Patient suffers from chronic constipation with intermittent lower abdominal pain related to pain medications. No prior history of colonoscopy in the past. Patient is refusing proceeding with a colonoscopy. Current Visit: Yes Status: Acute Code(s): K59.00 - CONSTIPATION, UNSPECIFIED SNOMED Code(s): 94096008 (4) Chronic pain Current Visit: Yes Status: Acute Code(s): G89.29 - OTHER CHRONIC PAIN SNOMED Code(s): 32653123 (5) Anxiety and depression Narrative/Plan: psychiatry has been consulted Current Visit: Yes Status: Acute Code(s): F41.9 - ANXIETY DISORDER, UNSPECIFIED; F32.9 - MAJOR DEPRESSIVE DISORDER, SINGLE EPISODE, UNSPECIFIED SNOMED Code(s): 098035755 Plan: 1. Supportive care 2. Continue with Protonix 40 mg twice daily 3. Recommend small frequent meals 4. Nothing by mouth after midnight 5. Will proceed with EGD tomorrow 6. Colonoscopy recommended, however patient is still refusing at this time. Discussed with patient he can follow-up and have done as outpatient Thank you for this consultation Dr. Saida Luciano I agree with the dictator's note, documented as a scribe by Alyssa Musa.
--- NOTE | 2020-07-21 16:11 | PN ---
PROGRESS NOTE DATE OF SERVICE: 07/21/2020 REASON FOR FOLLOWUP: Bilateral lower extremity cellulitis. INTERVAL HISTORY: The patient is currently afebrile, has been breathing comfortably. Denies having chest pain. Denies any worsening of lower extremity. No diarrhea. PHYSICAL EXAMINATION: Blood pressure 119/82 with a pulse of 87, temperature 98.2. He is 93% on room air. General description is a middle-aged male up in the room in no distress. RESPIRATORY SYSTEM: Unlabored breathing. Decreased breath sounds at the bases. No wheeze. HEART: S1, S2. Regular rate and rhythm. ABDOMEN: Soft, no tenderness. Legs currently with no significant swelling, minimal redness, no drainage. LABS: Creatinine 0.94. DIAGNOSTIC IMPRESSION AND PLAN: Patient admitted with bilateral lower extremity mild cellulitis currently on cefazolin. Finish therapy short course of oral Keflex. Continue supportive care. MMODL / IJN: [id number] /
[2020-07-21] MEDS: NAPROXEN 250 MG TAB PO SCH (21:19)
[2020-07-21] MEDS: polyethylene glycoL 3350 17 GM POWD.PACK PO SCH (21:20)
--- NOTE | 2020-07-21 22:47 | PN ---
PROGRESS NOTE This 59-year-old white male was admitted with cellulitis of the legs. He is going to get an EGD done tomorrow morning per GI's recommendations. He is feeling fairly decent. Discharge Planning said he is safe to go home. Blood pressure is 119/82, pulse 87, temperature 98, O2 93% on room air. Lungs: Decreased breath sounds. Heart: S1, S2. Abdomen: Soft. Extremities: Some mild redness. A lot of scaling. Creatinine is 0.941. Bilateral lower extremity cellulitis. Cefazolin switched to oral Keflex. Surgery is going to see him for ventral hernia down the road. Dr. Dial did arterial study which was read as a normal study. After EGD tomorrow, possibly he will be sent home to follow up as an outpatient. Severe lumbar stenosis. Chronic pain medicines will stay the same. Home OT, PT, and nurse aides. MMODL / IJN: [id number] /
[2020-07-22 07:13] LABS: Glucose,Whole Blood 102 mg/dL (75-99)
[2020-07-22] MEDS: GABAPENTIN 300 MG CAP PO SCH ×3 (08:34→21:43)
[2020-07-22] MEDS: PANTOPRAZOLE 40 MG TABLET PO SCH ×2 (08:34→21:43)
[2020-07-22] MEDS: SENNOSIDES-DOCUSATE SODIUM 1 EACH TAB PO SCH ×2 (08:34→21:42)
[2020-07-22] MEDS: MORPHINE SULFATE ER 30 MG TABLET PO SCH ×2 (08:34→21:43)
[2020-07-22] MEDS: clonazePAM 0.5 MG TAB PO SCH ×4 (08:35→21:43)
[2020-07-22] MEDS: SIMETHICONE 80 MG CHEWABLE PO SCH ×4 (08:36→21:43)
[2020-07-22] MEDS: FLUTICASONE 50MCG/SPRAY NASAL 16GM EA NOSTRIL SCH (08:36)
[2020-07-22] MEDS: ESCITALOPRAM 10 MG TAB PO SCH (09:04)
[2020-07-22] MEDS: NAPROXEN 250 MG TAB PO SCH (09:04)
--- NOTE | 2020-07-22 11:34 | P.PN ---
Subjective Progress Note Date: 07/22/20 CHIEF COMPLAINT: Abdominal pain with bloating and altered mental status changes HISTORY OF PRESENT ILLNESS: Patient is being called in regards to his abdominal pain and large ventral hernia. Patient is scheduled for EGD with GI service. Patient denies any nausea or vomiting. Afebrile PHYSICAL EXAM: VITAL SIGNS: Reviewed. GENERAL: Well-developed in no acute distress. HEENT: No sclera icterus. Extraocular movements grossly intact. Moist buccal mucosa. Head is atraumatic, normocephalic. ABDOMEN: Soft. Nondistended. Nontender. NEUROLOGIC: Alert and oriented. Cranial nerves II through XII grossly intact. ASSESSMENT: 1. Abdominal pain 2. Large wide neck ventral hernia with stretching of the anterior abdominal muscles noted on computed tomography scan PLAN: -GI service has patient scheduled for EGD today regarding his epigastric discomfort and bloating -No surgical intervention planned -Continue supportive care Physician Director General note has been reviewed by physician. Signing provider agrees with the documented findings, assessment, and plan of care. Objective - Vital Signs Vital signs: Vital Signs Temp 98.4 F 07/22/20 08:00 Pulse 69 07/22/20 08:00 Resp 16 07/22/20 08:00 BP 138/78 07/22/20 08:00 Pulse Ox 93 L 07/22/20 08:00 Intake & Output 07/21/20 07/22/20 07/22/20 18:59 06:59 18:59 Intake Total 840 Output Total 500 250 Balance 340 -250 Intake: Oral 840 Output: Urine 500 250 Stool 0 Other: Voiding Method Urinal Urinal # Voids 0 1 # Bowel Movements 0 - Labs CBC & Chem 7: 07/19/20 06:24 07/21/20 10:30 Labs: Abnormal Lab Results - Last 24 Hours (Table) 07/22/20 Range/Units 07:12 POC Glucose (mg/dL) 102 H (75-99) mg/dL
[2020-07-22] MEDS ORDERED: IV FLUID CONTINUATION 1,000 ML IV ONE (13:16)
[2020-07-22] MEDS ORDERED: PROPOFOL 10 MG/ML 20 ML VIAL IV ONE (13:17)
[2020-07-22] MEDS ORDERED: LIDOCAINE 1% INJ 10MG/ML (20 ML MDV) ONE (13:17)
[2020-07-22] MEDS ORDERED: KETAMINE 10 MG/ML 20 ML VIAL ONE (13:17)
[2020-07-22] MEDS ORDERED: GLYCOPYRROLATE 0.2 MG/ML 2 ML VIAL ONE (13:17)
--- NOTE | 2020-07-22 13:28 | P.PCN ---
Date of Procedure: 07/22/20 Procedure(s) Performed: BRIEF HISTORY: Patient is a 59-year-old, pleasant, male admitted hospital with epigastric discomfort abdominal bloating and early satiety for the last several months duration.. He is scheduled for an upper endoscopy to evaluate further. PROCEDURE PERFORMED: Esophagogastroduodenoscopy with biopsy. PREOPERATIVE DIAGNOSIS: Chronic epigastric pain, abdominal bloating and early satiety. IV sedation per anesthesia. PROCEDURE: After informed consent was obtained, the patient was brought into the endoscopy unit. IV sedation was administered by Anesthesia under continuous monitoring. Initially the Olympus GIF-140 video endoscope was inserted into the mouth. Esophagus intubated without any difficulty. It was gradually advanced into the stomach and duodenum and carefully examined. The bulb and the second part of the duodenum appeared normal. The scope at this time was withdrawn to the stomach, adequately insufflated with air, and upon careful examination, mucosa of the antrum, had a 1 cm clean-based ulcer with no active bleeding and biopsies were done from this area. There was some antral gastritis also noted. The body, cardia appeared normal. In the fundus of the stomach there was another 1 cm superficial ulceration identified. The scope was then withdrawn into the esophagus. The GE junction was located at 39 cm from the incisors. The esophagus appeared normal. There were no erosions or ulcerations seen and the patient tolerated the procedure well. IMPRESSION: 1. 1 cm antral ulcer status post biopsy. 2. 1 cm superficial ulcer in the fundus of the stomach. Recommendations : The findings of this examination were discussed with the patient. He was advised to follow with the biopsy results. Continue with Protonix 40 mg daily. Advance diet as tolerated.. Advised NSAIDs. t
[2020-07-22] MEDS: SODIUM CHLORIDE 0.9% 1,000 ML IV SCH (15:07)
[2020-07-22] MEDS: polyethylene glycoL 3350 17 GM POWD.PACK PO SCH (21:42)
--- NOTE | 2020-07-22 22:09 | PN ---
PROGRESS NOTE DATE OF SERVICE: 07/22/2020 REASON FOR FOLLOWUP: Lower extremity cellulitis. INTERVAL HISTORY: The patient is currently afebrile, has been breathing comfortably. No chest pain or cough. No abdominal pain or any worsening pain to the lower extremity. PHYSICAL EXAMINATION: Blood pressure 143/87, pulse 71, temperature 97.9, He is 95% on room air. General description is a middle-aged male lying in bed in no distress. RESPIRATORY SYSTEM: Unlabored breathing. Clear to auscultation anteriorly. HEART: S1, S2. Regular rate and rhythm. ABDOMEN: Soft. No tenderness. LEGS: No significant redness was noticed. DIAGNOSTIC IMPRESSION AND PLAN: Patient with bilateral lower extremity extensive and poor hygiene, status post washout with concern for cellulitis, adequately treated. Patient with no fever or elevated white count. Recommend discontinuing antibiotics. Monitor the patient closely off antibiotic therapy. ID will sign off. Please call back with any questions regarding his infectious disease care. MMODL / IJN: [id number] /
--- NOTE | 2020-07-22 23:23 | PN ---
PROGRESS NOTE This 59-year-old white male is going to get fitted for a lumbar brace today. He had an EGD done by Dr. Luciano who did duodenum, stomach biopsies. He had a 1 cm antral ulcer and a 1 cm superficial ulcer in the fundus. Follow up with the biopsies. Continue with Protonix 40 daily. Advance diet. Avoid NSAIDs. He was seen by Dr. Jean, Infectious Disease, for cellulitis of the legs. Will continue with oral antibiotics and possible discharge home in the morning. MMODL / IJN: [id number] /
[2020-07-23] MEDS: SENNOSIDES-DOCUSATE SODIUM 1 EACH TAB PO SCH ×3 (08:27→21:44)
[2020-07-23] MEDS: MORPHINE SULFATE ER 30 MG TABLET PO SCH ×2 (08:34→21:44)
[2020-07-23] MEDS: PANTOPRAZOLE 40 MG TABLET PO SCH ×2 (08:35→21:45)
[2020-07-23] MEDS: GABAPENTIN 300 MG CAP PO SCH ×3 (08:35→21:44)
[2020-07-23] MEDS: SIMETHICONE 80 MG CHEWABLE PO SCH ×4 (08:35→21:49)
[2020-07-23] MEDS: ESCITALOPRAM 10 MG TAB PO SCH (08:35)
[2020-07-23] MEDS: clonazePAM 0.5 MG TAB PO SCH ×4 (08:35→21:45)
[2020-07-23] MEDS: SODIUM CHLORIDE 0.9% 1,000 ML IV SCH (08:36)
[2020-07-23] MEDS: FLUTICASONE 50MCG/SPRAY NASAL 16GM EA NOSTRIL SCH (08:36)
[2020-07-23 09:55] VITALS: BMI 24.5
--- NOTE | 2020-07-23 13:53 | P.PN ---
Subjective Progress Note Date: 07/23/20 CHIEF COMPLAINT: Abdominal pain with bloating and altered mental status changes HISTORY OF PRESENT ILLNESS: Patient is being called in regards to his abdominal pain and large ventral hernia. Patient is status post EGD with GI service. Results showed antral ulcer and ulcer in the fundus of the stomach. Patient denies any nausea or vomiting. He still has some epigastric abdominal discomfort. Patient reports not having a bowel movement for a couple of days. He states that he is taking his stool softeners. Afebrile PHYSICAL EXAM: VITAL SIGNS: Reviewed. GENERAL: Well-developed in no acute distress. HEENT: No sclera icterus. Extraocular movements grossly intact. Moist buccal mucosa. Head is atraumatic, normocephalic. ABDOMEN: Soft. Nondistended. Nontender. NEUROLOGIC: Alert and oriented. Cranial nerves II through XII grossly intact. ASSESSMENT: 1. Abdominal pain 2. Large wide neck ventral hernia with stretching of the anterior abdominal muscles noted on computed tomography scan PLAN: -No surgical intervention planned -Continue supportive care Physician Research Support Specialist note has been reviewed by physician. Signing provider agrees with the documented findings, assessment, and plan of care. Objective - Vital Signs Vital signs: Vital Signs Temp 98.5 F 07/23/20 08:00 Pulse 71 07/23/20 08:00 Resp 18 07/23/20 08:00 BP 147/75 07/23/20 08:00 Pulse Ox 93 L 07/23/20 08:00 Intake & Output 07/22/20 07/23/20 07/23/20 18:59 06:59 18:59 Intake Total 100 480 Output Total 500 1200 Balance -400 -1200 480 Weight 82 kg Intake: IV 100 Oral 480 Output: Urine 500 1200 Other: Voiding Method Urinal Toilet Urinal - Labs CBC & Chem 7: 07/19/20 06:24 07/21/20 10:30
--- NOTE | 2020-07-23 15:18 | PN ---
PROGRESS NOTE DATE OF DICTATION: 07/23/2020 This patient is a 59-year-old white male admitted to the hospital with upper GI symptoms with epigastric pain, nausea, vomiting, abdominal bloating after eating. As a result he underwent an upper endoscopy yesterday which revealed mild antral gastritis, evidence of a 1 cm antral ulcer and a fundal ulcer noted. Biopsies were done which are still pending. Patient is on Protonix 40 mg twice daily. He continues to remain same. PHYSICAL EXAMINATION: Appears comfortable. No apparent distress. Vital signs are stable. Blood pressure is 122/82, pulse rate 70, temperature 98.1. HEENT examination unremarkable. Conjunctivae pink. Sclerae anicteric. Oral cavity no lesions. NECK: No JVD or lymph node enlargement. CHEST: Clear to auscultation. HEART: Regular rate and rhythm. ABDOMEN: Soft. It was slightly distended. There was mild tenderness in the epigastric area. EXTREMITIES: No pedal edema. SKIN: No rashes. NEUROLOGIC: Alert and oriented x3. No focal deficits. LABS: Labs from today: basic metabolic panel is within normal limits. IMPRESSION: 1. Epigastric pain secondary to peptic ulcer disease, status post EGD yesterday that showed a 1 cm antral ulcer and fundal ulcer. Biopsies are still pending. Presently on Protonix 40 mg daily and doing better. 2. History of anxiety and depression. RECOMMENDATIONS: 1. Avoid NSAIDs. 2. Continue Protonix 40 mg twice daily. 3. Await biopsy results. 4. Advance diet as tolerated. 5. Will follow with you closely. Thank you for this consultation. MMODL / IJN: [id number] /
[2020-07-23] MEDS: polyethylene glycoL 3350 17 GM POWD.PACK PO SCH (21:44)
--- NOTE | 2020-07-24 06:42 | PN ---
PROGRESS NOTE SUBJECTIVE: A 59-year-old white male who is going to get up and get moving today. He has a new brace placed. He had EGD showing 2 antral ulcers. Medications were reviewed with him. He will be discharged home tomorrow. Cardiovascular S1, S2. Lungs clear. GI soft. Musculoskeletal is 3/5 strength legs and arms. Please see further orders. MMODL / IJN: [id number] /
[2020-07-24 07:54] VITALS: BP 127/78; PULSE 70; RESP 20; TEMP 97.9
[2020-07-24] MEDS: SIMETHICONE 80 MG CHEWABLE PO SCH (08:57)
[2020-07-24] MEDS: MORPHINE SULFATE ER 30 MG TABLET PO SCH (08:58)
[2020-07-24] MEDS: PANTOPRAZOLE 40 MG TABLET PO SCH (08:58)
[2020-07-24] MEDS: SENNOSIDES-DOCUSATE SODIUM 1 EACH TAB PO SCH (08:58)
[2020-07-24] MEDS: GABAPENTIN 300 MG CAP PO SCH (08:59)
[2020-07-24] MEDS: ESCITALOPRAM 10 MG TAB PO SCH (08:59)
[2020-07-24] MEDS: clonazePAM 0.5 MG TAB PO SCH (09:00)
[2020-07-24] MEDS: FLUTICASONE 50MCG/SPRAY NASAL 16GM EA NOSTRIL SCH (09:00)
--- NOTE | 2020-07-24 09:57 | PN ---
PROGRESS NOTE DATE OF SERVICE: 07/24/2020 Patient is a 59-year-old pleasant white male admitted to hospital with epigastric pain and abdominal distention, nausea, and early satiety. He underwent an upper endoscopy 2 days ago that showed gastric, antral as well as fundal ulcer. Patient has been on naproxen for several years. I discontinue the naproxen, but patient states that he would like to continue to take that because of his chronic pain which is not controlled with narcotics. He remains on Protonix 40 mg twice daily. He still remains the same and epigastric pain is slightly improved. PHYSICAL EXAMINATION: He appears comfortable. VITAL SIGNS: Stable. Blood pressure 154/81, pulse is 74, temperature 98.4. HEENT: Examination unremarkable. Conjunctivae are pink. Sclerae anicteric. Oral cavity no lesions. NECK: No JVD or lymph node enlargement. CHEST: Clear to auscultation. ABDOMEN: Soft with minimal tenderness in the epigastric area but it was benign. EXTREMITIES: No pedal edema. NEURO: He is alert, oriented to name and place. LABS: No labs available from today. IMPRESSION: 1. Peptic ulcer disease, status post EGD 2 days ago. The EGD revealed a 1 cm antral and fundal ulcer. On Protonix 40 mg twice daily and naproxen has been discontinued. 2. Chronic pain syndrome. 3. History of anxiety and depression. RECOMMENDATIONS: 1. Continue with Protonix 40 mg twice daily. 2. Advised to hold off on naproxen as much as possible and use other pain medications as needed. 3. Await biopsy results. 4. We will follow with you closely. Thank you for this consultation. MMODL / IJN: [id number] /
[2020-07-24] MEDS: SODIUM CHLORIDE 0.9% 1,000 ML IV SCH (10:02)
--- NOTE | 2020-07-24 10:28 | P.PN ---
Subjective Progress Note Date: 07/24/20 Principal diagnosis: Abdominal swelling Patient doing better today. Says his pain is improved. He would like to go home. He is tolerating his diet. Objective - Vital Signs Vital signs: Vital Signs Temp 97.9 F 07/24/20 07:53 Pulse 70 07/24/20 07:53 Resp 20 07/24/20 07:53 BP 127/78 07/24/20 07:53 Pulse Ox 94 L 07/24/20 07:53 Intake & Output 07/23/20 07/24/20 07/24/20 18:59 06:59 18:59 Intake Total 1080 Output Total 525 750 Balance 555 -750 Weight 82 kg Intake: Intake, IV Titration 600 Amount Sodium Chloride 0.9% 1, 600 000 ml @ 50 mls/hr IV . Q20H CRISTIAN Rx#:[id number] Oral 480 Output: Urine 525 750 Other: Voiding Method Toilet Urinal # Voids 1 # Bowel Movements 1 - Exam Abdomen: Soft, mild distention, nontender - Labs CBC & Chem 7: 07/19/20 06:24 07/21/20 10:30 Assessment and Plan (1) Abdominal bloating Narrative/Plan: Patient doing better at this time. May discharge. Follow-up with Dr. Wagner postdischarge. Current Visit: Yes Status: Acute Code(s): R14.0 - ABDOMINAL DISTENSION (GASEOUS) SNOMED Code(s): 265141949
== END 2020-07-24 12:41 | disposition home or self-care (01) | DRG 357 ==
LOC: EC 21:33 → SUPCPDRO 21:33 → 3SCARD 07-18 01:22 → 4SSUR 07-21 22:17
PROVIDERS: ADMIT Family Medicine; ATTEND Family Medicine
PROC: 0FT44ZZ Resection of Gallbladder, Percutaneous Endoscopic Approach (ICD-10-PCS; principal; 2020-07-21)
PROC: 0DB78ZX Excision of Stomach, Pylorus, Via Natural or Artificial Opening Endoscopic, Diagnostic (ICD-10-PCS; 2020-07-22)
DX: K25.9 Gastric ulcer, unspecified as acute or chronic, without hemorrhage or perforation (principal); K81.0 Acute cholecystitis; L03.116 Cellulitis of left lower limb; L03.115 Cellulitis of right lower limb; M48.54XA Collapsed vertebra, not elsewhere classified, thoracic region, initial encounter for fracture; N17.9 Acute kidney failure, unspecified; E87.5 Hyperkalemia; E86.0 Dehydration; G89.4 Chronic pain syndrome; K59.09 Other constipation; K43.9 Ventral hernia without obstruction or gangrene; M41.86 Other forms of scoliosis, lumbar region; M48.061 Spinal stenosis, lumbar region without neurogenic claudication; M51.36 Other intervertebral disc degeneration, lumbar region; M47.816 Spondylosis without myelopathy or radiculopathy, lumbar region; K76.0 Fatty (change of) liver, not elsewhere classified; G62.9 Polyneuropathy, unspecified; F32.9 Major depressive disorder, single episode, unspecified; I10 Essential (primary) hypertension; F41.9 Anxiety disorder, unspecified; Z79.899 Other long term (current) drug therapy; Z87.891 Personal history of nicotine dependence; Z98.890 Other specified postprocedural states; Z98.1 Arthrodesis status; Z79.1 Long term (current) use of non-steroidal anti-inflammatories (NSAID)
CPT/HCPCS: 36415; 43239; 70450; 72131; 74177; 80048; 80053; 80074; 80076; 80143; 80306; 80320; 81001; 82140; 83520; 83690; 83735; 84132; 84443; 84484; 85025; 85610; 85730; 87086; 88305; 93005; 93922; 96361; 96365; 96375; 96376; 99285